=== PATIENT | female | born 1985 | race Caucasian/White ===

== ENCOUNTER → 2016-08-06 | Outpatient (CLI) | payer OTHER ==
[2016-08-06 13:55] LABS: MEAN CORPUSCULAR HEMOGLOBIN 30.1 pg (27.0-33.0); MEAN CORPUSCULAR HGB CONC 34.2 g/dl (32.0-36.5); MEAN CORPUSCULAR VOLUME 87.9 fl (80.0-96.0); RED CELL DISTRIBUTION WIDTH 12.7 % (11.5-14.5); WHITE BLOOD COUNT 8.9 K/mm3 (4.0-10.0)
[2016-08-06 14:28] LABS: ANION GAP 11 MEQ/L (8-16); BLOOD UREA NITROGEN 11 MG/DL (7-18); CALCIUM LEVEL 8.7 MG/DL (8.5-10.1); CARBON DIOXIDE LEVEL 24 MEQ/L (21-32); CHLORIDE LEVEL 108 MEQ/L (98-107); CREATININE FOR GFR 0.65 MG/DL (0.55-1.02); GLOMERULAR FILTRATION RATE > 60.0 (>60); GLUCOSE, FASTING 85 MG/DL (70-105); POTASSIUM SERUM 3.9 MEQ/L (3.5-5.1); SODIUM LEVEL 143 MEQ/L (136-145)
== END ==
LOC: M LAB 12:32
PROVIDERS: ATTEND Student in an Organized Health Care Education/Training Program
DX: R53.83 Other fatigue (principal); Z79.899 Other long term (current) drug therapy

== ENCOUNTER → 2016-09-02 | Outpatient (RCR) | payer OTHER | END | disposition home or self-care (01) | LOC: M OUTALCOH 08-05 10:35 | PROVIDERS: ATTEND Psychiatry & Neurology Psychiatry | DX: F10.20 Alcohol dependence, uncomplicated (principal) ==

== ENCOUNTER 2016-09-10 14:58 | Emergency (ER) | payer MEDICAID, OTHER ==
--- NOTE | 2016-09-10 17:20 | EDDOCDS ---
Nurse's Notes [facility] Name: Dede Branch Age: 31 yrs Sex: Female : 1985 Arrival Date: 09/10/2016 Time: 14:58 Bed TR7 Private MD: NO PRIMARY PHYSICIAN, . Diagnosis: Conjunctivitis-left eye Presentation: 09/10 15:06 Presenting complaint: Patient states: left eye red -- pt concerned with pink eye. No ttb drainage. Mechanism of Injury: No Mechanism of Injury. The patient denies any loss of vision. Adult Sepsis Screening: The patient does not have new or worsening altered mentation. Patient's respiratory rate is less than 22. Systolic blood pressure is greater than 100. Patient has a qSOFA score of 0- Negative Sepsis Screen. Suicide/Homicide risk assessment- the patient denies having any suicidal and/or homicidal ideations and does not present with any other emotional, behavioral or mental health complaints. Status: Patient is not a rn support services or dependent. Transition of care: patient was not received from another setting of care. 15:06 Acuity: DAFNE Level 5 ttb 15:06 Method Of Arrival: Walkin/Carried/Asstd ttb Triage Assessment: 15:08 General: Appears in no apparent distress, well nourished, well groomed. Pain: Denies ttb pain. HIV screening NA for this visit Offered previously. EENT: Eyes left eye red, no drainage. Respiratory: No deficits noted. Derm: Skin is normal. Injury Description: No known injury. 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 Benadryl Oral 1 cap 4 times per day (Last dose: Unknown) 2. metformin 500 mg oral tab 1 tab 2 times per day (Last dose: 09/10/2016 08:00) 3. multivitamin Oral cap daily (Last dose: 09/10/2016 07:30) 4. BCP Oral once daily (Last dose: 09/09/2016 20:00) - PMHx: Anxiety; PCOS; - PSHx: Cesearean Section; - Social history: Smoking status: Patient states was never smoker of tobacco. Patient/guardian denies using alcohol, street drugs, No barriers to communication noted, The patient speaks fluent Thai, Speaks appropriately for age. - Family history: Not pertinent. - : The pt / caregiver states he / she is not on anticoagulants. Home medication list is obtained from the patient. - Exposure Risk Screening:: None identified. Screenin:19 Screening information is obtained from the patient. Fall risk: No risks identified. hs1 Assistance ADL's: requires no assistance with activities of daily living. Abuse/DV Screen: The patient / caregiver reports he/she is: not in a situation that causes fear, pain or injury. Nutritional screening: No deficits noted. Advance Directives: There is no active DNR order. home support is adequate. Assessment: 17:19 General: Appears in no apparent distress, comfortable. EENT: Sclera/Cornea are reddened hs1 in left eye. Vital Signs: 15:00 BP 128 / 68; Pulse 91; Resp 18 S; Temp 97.1(O); Pulse Ox 98% on R/A; Weight 79.38 kg gr2 (R); Height 4 ft. 11 in. (149.86 cm) (R); Pain 2/10; 17:16 BP 122 / 67; Pulse 74; Resp 18; Temp 97.8(O); Pulse Ox 97% on R/A; Pain 0/10; ct3 15:00 Body Mass Index 35.35 (79.38 kg, 149.86 cm) gr2 Vitals: 15:00 Log In Time: September 10, 2016 at 15:00. gr2 ED Course: 14:59 Patient visited by Roxane Manning. gr2 14:59 Patient moved to Waiting gr2 15:00 NO PRIMARY PHYSICIAN, . is Private Physician. gr2 15:01 Patient visited by Roxane Manning. gr2 15:01 Patient moved to Pre RCE gr2 15:07 Triage Initiated ttb 15:09 Patient visited by Shi Bucio RN. ttb 16:51 Noah Sheehan PA-C is PHCP. ar2 16:51 Brian Koch MD is Attending Physician. ar2 16:51 Patient visited by Noah Sheehan PA-C. ar2 16:51 Patient moved to Triage 2 ct3 17:17 Patient visited by Aminta Jacques PCA. ct3 17:19 Patient moved to TR7 ct3 17:19 The patient / caregiver is instructed regarding the plan of care and ED course. hs1 17:19 No IV's were initiated during this patient's visit. No procedures done that require hs1 assistance. Order Results: There are currently no results for this order. Outcome: 17:03 Discharge ordered by Provider. ar2 17:19 Discharge Assessment: Patient awake, alert and oriented x 3. No cognitive and/or hs1 functional deficits noted. Patient verbalized understanding of disposition instructions. patient administered narcotics - no. The following High Risk Discharge criteria are identified: None. Discharged to home ambulatory. Condition: good. Discharge instructions given to patient, Instructed on discharge instructions, follow up and referral plans. medication usage, Demonstrated understanding of instructions, medications, Pt was receptive of discharge instructions/ teaching. Prescriptions given X 1. No special radiology studies were completed. Property sent home with patient. 17:20 Patient left the ED. hs1 Signatures: Noah Sheehan, KENN PABelkis ar2 Trisha Nuñez, RN RN hs1 Aminta Jacques, CHASE DIRECT SUPPORT PROFESSIONAL CAREGIVER ct3 Shi Bucio RN RN ttb Roxane Manning gr2 MTDD
--- NOTE | 2016-09-10 17:20 | EDDOCDS ---
Physician Documentation [facility] Name: Dede Branch Age: 31 yrs Sex: Female : 1985 Arrival Date: 09/10/2016 Time: 14:58 Bed TR7 Private MD: NO PRIMARY PHYSICIAN, . Disposition: 09/10/16 17:03 Discharged to Home/Self Care. Impression: Conjunctivitis - left eye. - Condition is Stable. - Discharge Instructions: Bacterial Conjunctivitis. - Prescriptions for tobramycin 0.3 % Ophthalmic drops - instill 1 drop by OPHTHALMIC route 4 times per day for 5 days; 1 bottle. - Medication Reconciliation, Local Pharmacy Hours form. - Follow up: Private Physician; When: Call to arrange an appointment; Reason: Recheck today's complaints. Follow up: Emergency Department; When: As needed; Reason: Worsening of conditions. - Problem is new. - Symptoms are unchanged. Historical: - Allergies: Peanut; - Home Meds: 1. Benadryl Oral 1 cap 4 times per day (Last dose: Unknown) 2. metformin 500 mg oral tab 1 tab 2 times per day (Last dose: 09/10/2016 08:00) 3. multivitamin Oral cap daily (Last dose: 09/10/2016 07:30) 4. BCP Oral once daily (Last dose: 09/09/2016 20:00) - PMHx: Anxiety; PCOS; - PSHx: Cesearean Section; - Social history: Smoking status: Patient states was never smoker of tobacco. Patient/guardian denies using alcohol, street drugs, No barriers to communication noted, The patient speaks fluent Spanish, Speaks appropriately for age. - Family history: Not pertinent. - : The pt / caregiver states he / she is not on anticoagulants. Home medication list is obtained from the patient. - Exposure Risk Screening:: None identified. 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 11 in. (149.86 cm) (R); Pain 2/10; 17:16 BP 122 / 67; Pulse 74; Resp 18; Temp 97.8(O); Pulse Ox 97% on R/A; Pain 0/10; ct3 15:00 Body Mass Index 35.35 (79.38 kg, 149.86 cm) gr2 Signatures: Noah Sheehan PA-C PABelkis ar2 Trisha Nuñez RN RN hs1 Shi Bucio RN RN ttb MTDD
--- NOTE | 2016-09-12 18:20 | EDDOCDS ---
Nurse's Notes [facility] Name: Dede Branch Age: 31 yrs Sex: Female : 1985 Arrival Date: 09/10/2016 Time: 14:58 Bed TR7 Private MD: NO PRIMARY PHYSICIAN, . Diagnosis: Conjunctivitis-left eye Presentation: 09/10 15:06 Presenting complaint: Patient states: left eye red -- pt concerned with pink eye. No ttb drainage. Mechanism of Injury: No Mechanism of Injury. The patient denies any loss of vision. Adult Sepsis Screening: The patient does not have new or worsening altered mentation. Patient's respiratory rate is less than 22. Systolic blood pressure is greater than 100. Patient has a qSOFA score of 0- Negative Sepsis Screen. Suicide/Homicide risk assessment- the patient denies having any suicidal and/or homicidal ideations and does not present with any other emotional, behavioral or mental health complaints. Status: Patient is not a ramp service employee or dependent. Transition of care: patient was not received from another setting of care. 15:06 Acuity: DAFNE Level 5 ttb 15:06 Method Of Arrival: Walkin/Carried/Asstd ttb Triage Assessment: 15:08 General: Appears in no apparent distress, well nourished, well groomed. Pain: Denies ttb pain. HIV screening NA for this visit Offered previously. EENT: Eyes left eye red, no drainage. Respiratory: No deficits noted. Derm: Skin is normal. Injury Description: No known injury. 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 Benadryl Oral 1 cap 4 times per day (Last dose: Unknown) 2. metformin 500 mg oral tab 1 tab 2 times per day (Last dose: 09/10/2016 08:00) 3. multivitamin Oral cap daily (Last dose: 09/10/2016 07:30) 4. BCP Oral once daily (Last dose: 09/09/2016 20:00) - PMHx: Anxiety; PCOS; - PSHx: Cesearean Section; - Social history: Smoking status: Patient states was never smoker of tobacco. Patient/guardian denies using alcohol, street drugs, No barriers to communication noted, The patient speaks fluent Indonesian, Speaks appropriately for age. - Family history: Not pertinent. - : The pt / caregiver states he / she is not on anticoagulants. Home medication list is obtained from the patient. - Exposure Risk Screening:: None identified. Screenin:19 Screening information is obtained from the patient. Fall risk: No risks identified. hs1 Assistance ADL's: requires no assistance with activities of daily living. Abuse/DV Screen: The patient / caregiver reports he/she is: not in a situation that causes fear, pain or injury. Nutritional screening: No deficits noted. Advance Directives: There is no active DNR order. home support is adequate. Assessment: 17:19 General: Appears in no apparent distress, comfortable. EENT: Sclera/Cornea are reddened hs1 in left eye. Vital Signs: 15:00 BP 128 / 68; Pulse 91; Resp 18 S; Temp 97.1(O); Pulse Ox 98% on R/A; Weight 79.38 kg gr2 (R); Height 4 ft. 11 in. (149.86 cm) (R); Pain 2/10; 17:16 BP 122 / 67; Pulse 74; Resp 18; Temp 97.8(O); Pulse Ox 97% on R/A; Pain 0/10; ct3 15:00 Body Mass Index 35.35 (79.38 kg, 149.86 cm) gr2 Vitals: 15:00 Log In Time: September 10, 2016 at 15:00. gr2 ED Course: 14:59 Patient visited by Roxane Manning. gr2 14:59 Patient moved to Waiting gr2 15:00 NO PRIMARY PHYSICIAN, . is Private Physician. gr2 15:01 Patient visited by Roxane Manning. gr2 15:01 Patient moved to Pre RCE gr2 15:07 Triage Initiated ttb 15:09 Patient visited by Shi Bucio RN. ttb 16:51 Noah Sheehan PA-C is PHCP. ar2 16:51 Brian Koch MD is Attending Physician. ar2 16:51 Patient visited by Noah Sheehan PA-C. ar2 16:51 Patient moved to Triage 2 ct3 17:17 Patient visited by Aminta Jacques PCA. ct3 17:19 Patient moved to TR7 ct3 17:19 The patient / caregiver is instructed regarding the plan of care and ED course. hs1 17:19 No IV's were initiated during this patient's visit. No procedures done that require hs1 assistance. 17:25 [facility] Payment Agreement was scanned into [employer] and attached to record. shu 09/11 13:30 T-Sheet-- Draft Copy was scanned into [employer] and attached to record. gb Order Results: There are currently no results for this order. Outcome: 09/10 17:03 Discharge ordered by Provider. ar2 17:19 Discharge Assessment: Patient awake, alert and oriented x 3. No cognitive and/or hs1 functional deficits noted. Patient verbalized understanding of disposition instructions. patient administered narcotics - no. The following High Risk Discharge criteria are identified: None. Discharged to home ambulatory. Condition: good. Discharge instructions given to patient, Instructed on discharge instructions, follow up and referral plans. medication usage, Demonstrated understanding of instructions, medications, Pt was receptive of discharge instructions/ teaching. Prescriptions given X 1. No special radiology studies were completed. Property sent home with patient. 17:20 Patient left the ED. hs1 Signatures: Mirian Prescott, Reg Reg gb Noah Sheehan, PA-C PA-C ar2 Trisha Nuñez, RN RN hs1 Aminta Jacques, DYER AND WASHER DYER AND WASHER ct3 Shi Bucio, RN RN ttb Roxane Manning gr2 Sabrina Rolon Chart Complete MTDD
--- NOTE | 2016-09-12 18:20 | EDDOCDS ---
Physician Documentation [facility] Name: Dede Branch Age: 31 yrs Sex: Female : 1985 Arrival Date: 09/10/2016 Time: 14:58 Bed TR7 Private MD: NO PRIMARY PHYSICIAN, . Disposition: 09/10/16 17:03 Discharged to Home/Self Care. Impression: Conjunctivitis - left eye. - Condition is Stable. - Discharge Instructions: Bacterial Conjunctivitis. - Prescriptions for tobramycin 0.3 % Ophthalmic drops - instill 1 drop by OPHTHALMIC route 4 times per day for 5 days; 1 bottle. - Medication Reconciliation, Local Pharmacy Hours form. - Follow up: Private Physician; When: Call to arrange an appointment; Reason: Recheck today's complaints. Follow up: Emergency Department; When: As needed; Reason: Worsening of conditions. - Problem is new. - Symptoms are unchanged. Historical: - Allergies: Peanut; - Home Meds: 1. Benadryl Oral 1 cap 4 times per day (Last dose: Unknown) 2. metformin 500 mg oral tab 1 tab 2 times per day (Last dose: 09/10/2016 08:00) 3. multivitamin Oral cap daily (Last dose: 09/10/2016 07:30) 4. BCP Oral once daily (Last dose: 09/09/2016 20:00) - PMHx: Anxiety; PCOS; - PSHx: Cesearean Section; - Social history: Smoking status: Patient states was never smoker of tobacco. Patient/guardian denies using alcohol, street drugs, No barriers to communication noted, The patient speaks fluent Scottish, Speaks appropriately for age. - Family history: Not pertinent. - : The pt / caregiver states he / she is not on anticoagulants. Home medication list is obtained from the patient. - Exposure Risk Screening:: None identified. 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 11 in. (149.86 cm) (R); Pain 2/10; 17:16 BP 122 / 67; Pulse 74; Resp 18; Temp 97.8(O); Pulse Ox 97% on R/A; Pain 0/10; ct3 15:00 Body Mass Index 35.35 (79.38 kg, 149.86 cm) gr2 MDM: 17:25 [facility] Payment Agreement was scanned into [employer] and attached to record. gjb 17:25 Financial registration complete. gjb 09/11 13:30 T-Sheet-- Draft Copy was scanned into [employer] and attached to record. gb Signatures: Mirian Prescott, Reg Reg gb Noah Sheehan PA-C PA-C ar2 Trisha Nuñez RN RN hs1 Shi Bucio RN RN pavelb Sabrina Rolon The chart was reviewed and I authenticate all verbal orders and agree with the evaluation and treatment provided.Attachments: 09/10 17:25 [facility] Payment Agreement gjb 09/11 13:30 T-Sheet-- Draft Copy gb Chart Complete MTDD
--- NOTE | 2016-09-12 18:20 | EDDOCDS ---
Physician Documentation [facility] Name: Dede Branch Age: 31 yrs Sex: Female : 1985 Arrival Date: 09/10/2016 Time: 14:58 Bed TR7 Private MD: NO PRIMARY PHYSICIAN, . Disposition: 09/10/16 17:03 Discharged to Home/Self Care. Impression: Conjunctivitis - left eye. - Condition is Stable. - Discharge Instructions: Bacterial Conjunctivitis. - Prescriptions for tobramycin 0.3 % Ophthalmic drops - instill 1 drop by OPHTHALMIC route 4 times per day for 5 days; 1 bottle. - Medication Reconciliation, Local Pharmacy Hours form. - Follow up: Private Physician; When: Call to arrange an appointment; Reason: Recheck today's complaints. Follow up: Emergency Department; When: As needed; Reason: Worsening of conditions. - Problem is new. - Symptoms are unchanged. Historical: - Allergies: Peanut; - Home Meds: 1. Benadryl Oral 1 cap 4 times per day (Last dose: Unknown) 2. metformin 500 mg oral tab 1 tab 2 times per day (Last dose: 09/10/2016 08:00) 3. multivitamin Oral cap daily (Last dose: 09/10/2016 07:30) 4. BCP Oral once daily (Last dose: 09/09/2016 20:00) - PMHx: Anxiety; PCOS; - PSHx: Cesearean Section; - Social history: Smoking status: Patient states was never smoker of tobacco. Patient/guardian denies using alcohol, street drugs, No barriers to communication noted, The patient speaks fluent Beninese, Speaks appropriately for age. - Family history: Not pertinent. - : The pt / caregiver states he / she is not on anticoagulants. Home medication list is obtained from the patient. - Exposure Risk Screening:: None identified. 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 11 in. (149.86 cm) (R); Pain 2/10; 17:16 BP 122 / 67; Pulse 74; Resp 18; Temp 97.8(O); Pulse Ox 97% on R/A; Pain 0/10; ct3 15:00 Body Mass Index 35.35 (79.38 kg, 149.86 cm) gr2 MDM: 17:25 [facility] Payment Agreement was scanned into [employer] and attached to record. gjb 17:25 Financial registration complete. gjb 09/11 13:30 T-Sheet-- Draft Copy was scanned into [employer] and attached to record. gb Signatures: Mirian Prescott, Reg Reg gb Noah Sheehan PA-C PA-C ar2 Trisha Nuñez RN RN hs1 Shi Bucio RN RN pavelb Sabrina Rolon The chart was reviewed and I authenticate all verbal orders and agree with the evaluation and treatment provided.Attachments: 09/10 17:25 [facility] Payment Agreement gjb 09/11 13:30 T-Sheet-- Draft Copy gb Chart Complete MTDD
== END 2016-09-10 17:20 | disposition home or self-care (01) ==
LOC: M ED 14:58
DX: H10.32 Unspecified acute conjunctivitis, left eye (principal); F41.9 Anxiety disorder, unspecified; E28.2 Polycystic ovarian syndrome; Z79.84 Long term (current) use of oral hypoglycemic drugs; Z91.010 Allergy to peanuts

== ENCOUNTER 2016-09-29 14:00 | Outpatient (RCR) | payer MEDICAID | END 2016-09-30 | LOC: M OUTALCOH 14:00 | PROVIDERS: ATTEND Psychiatry & Neurology Psychiatry | DX: F10.20 Alcohol dependence, uncomplicated (principal) ==

== ENCOUNTER 2016-10-29 14:00 | Outpatient (RCR) | payer MEDICAID | END 2016-10-31 | LOC: M OUTALCOH 14:00 | PROVIDERS: ATTEND Psychiatry & Neurology Psychiatry | DX: F10.20 Alcohol dependence, uncomplicated (principal) ==

== ENCOUNTER 2016-11-26 13:00 | Outpatient (RCR) | payer MEDICAID | END 2016-11-30 | LOC: M OUTALCOH 13:00 | PROVIDERS: ATTEND Psychiatry & Neurology Psychiatry | DX: F10.20 Alcohol dependence, uncomplicated (principal) ==

== ENCOUNTER → 2016-11-28 | Outpatient (CLI) | payer OTHER ==
[2016-11-28 19:09] LABS: MEAN CORPUSCULAR HEMOGLOBIN 29.7 pg (27.0-33.0); MEAN CORPUSCULAR HGB CONC 32.8 g/dl (32.0-36.5); MEAN CORPUSCULAR VOLUME 90.5 fl (80.0-96.0); RED CELL DISTRIBUTION WIDTH 13.9 % (11.5-14.5)
== END ==
LOC: M LAB 15:50
PROVIDERS: ATTEND Student in an Organized Health Care Education/Training Program
DX: D64.9 Anemia, unspecified (principal); L83 Acanthosis nigricans

== ENCOUNTER → 2016-12-02 | Outpatient (CLI) | payer OTHER ==
--- NOTE | 2016-12-03 03:52 | REP ---
Clinical: Pelvic pain and cramping . Technique: Transabdominal pelvic ultrasound followed by transvaginal examination for better evaluation of the endometrium and adnexa with color Doppler evaluation of the ovaries. Findings: Bladder is unremarkable and measures 6.9 x 2.9 x 4.3 cm . Normal anteverted uterus measures 8.2 x 3.6 x 5.7 cm . The endometrial complex measures 3.0 mm thickness. No discrete uterine or endometrial abnormalities are appreciated. Bilateral ovaries are normal in appearance and vascularity without evidence for torsion. Right ovary measures 3.2 x 1.8 x 2.5 cm ; R I = 0.62 . Left ovary measures 3.6 x 2.6 x 3.2 cm ; R I = 0.52 . No pelvic fluid or adnexal mass lesions. . Impression: 1. Normal pelvic ultrasound. Signed by Km Cheng MD 12/03/2016 03:43 A
== END ==
LOC: M RAD 11:18
PROVIDERS: ATTEND Student in an Organized Health Care Education/Training Program
DX: R10.9 Unspecified abdominal pain (principal)

== ENCOUNTER → 2016-12-10 | Outpatient (CLI) | payer OTHER ==
[2016-12-10 13:39] LABS: BASO # 0.1 K/mm3 (0.0-0.2); BASO % 0.5 % (0.0-1.0); EOS # 0.2 K/mm3 (0.0-0.50); EOS % 1.7 % (0.0-3.0); LARGE UNSTAINED CELL # 0.3 K/mm3 (0.0-0.4); LARGE UNSTAINED CELL % 2.4 % (0.0-4.0); LYMPH # 3.4 K/mm3 (1.5-4.5); LYMPH % 25.3 % (24.0-44.0); MEAN CORPUSCULAR HEMOGLOBIN 30.9 pg (27.0-33.0); MEAN CORPUSCULAR HGB CONC 34.3 g/dl (32.0-36.5); MEAN CORPUSCULAR VOLUME 90.1 fl (80.0-96.0); MONO # 0.4 K/mm3 (0.0-0.8); MONO % 3.3 % (0.0-5.0); NEUTROPHILS # 8.2 K/mm3 (1.8-7.7); NEUTROPHILS % 66.9 % (36.0-66.0); PLATELET COUNT, AUTOMATED 243 k/mm3 (150-450); RED CELL DISTRIBUTION WIDTH 13.5 % (11.5-14.5); WHITE BLOOD COUNT 12.2 K/mm3 (4.0-10.0)
== END ==
LOC: M LAB 12:45
PROVIDERS: ATTEND Student in an Organized Health Care Education/Training Program
DX: D72.829 Elevated white blood cell count, unspecified (principal)

== ENCOUNTER 2016-12-24 14:00 | Outpatient (RCR) | payer MEDICAID | END 2016-12-31 | LOC: M OUTALCOH 14:00 | PROVIDERS: ATTEND Psychiatry & Neurology Psychiatry | DX: F10.20 Alcohol dependence, uncomplicated (principal) ==

== ENCOUNTER → 2016-12-25 | Outpatient (CLI) | payer MEDICAID ==
[2016-12-25 14:48] LABS: BASO # 0.1 K/mm3 (0.0-0.2); BASO % 0.5 % (0.0-1.0); EOS # 0.3 K/mm3 (0.0-0.50); EOS % 2.4 % (0.0-3.0); LARGE UNSTAINED CELL # 0.2 K/mm3 (0.0-0.4); LARGE UNSTAINED CELL % 1.9 % (0.0-4.0); LYMPH # 3.5 K/mm3 (1.5-4.5); LYMPH % 27.4 % (24.0-44.0); MEAN CORPUSCULAR HEMOGLOBIN 30.7 pg (27.0-33.0); MEAN CORPUSCULAR HGB CONC 33.9 g/dl (32.0-36.5); MEAN CORPUSCULAR VOLUME 90.4 fl (80.0-96.0); MONO # 0.5 K/mm3 (0.0-0.8); MONO % 3.8 % (0.0-5.0); NEUTROPHILS # 7.6 K/mm3 (1.8-7.7); PLATELET COUNT, AUTOMATED 236 k/mm3 (150-450); RED CELL DISTRIBUTION WIDTH 13.6 % (11.5-14.5); WHITE BLOOD COUNT 11.9 K/mm3 (4.0-10.0)
== END ==
LOC: M LAB 13:50
PROVIDERS: ATTEND Student in an Organized Health Care Education/Training Program
DX: D72.820 Lymphocytosis (symptomatic) (principal)

== ENCOUNTER → 2017-01-23 | Outpatient (REF) | payer OTHER | LOC: M SFHCPLAZ 11:37 | PROVIDERS: ATTEND Family Medicine | DX: Z12.4 Encounter for screening for malignant neoplasm of cervix (principal); Z11.3 Encounter for screening for infections with a predominantly sexual mode of transmission ==

== ENCOUNTER 2017-01-26 11:00 | Outpatient (RCR) | payer MEDICAID ==
[2017-06-05] MEDS ORDERED: PREVTAB2 (10:45)
[2017-06-05] MEDS ORDERED: CITA20TA4 (10:45)
[2017-06-05] MEDS ORDERED: VALA1TAB2 (10:45)
[2017-06-05] MEDS ORDERED: CELE10TA (10:45)
[2017-06-05] MEDS ORDERED: CELE20TA (10:45)
[2017-06-05] MEDS ORDERED: METF500T13 (10:45)
[2017-06-05] MEDS ORDERED: GABA-282 (10:45)
== END 2017-01-30 | disposition home or self-care (01) ==
LOC: M OUTALCOH 11:00
PROVIDERS: ATTEND Psychiatry & Neurology Psychiatry
DX: F10.20 Alcohol dependence, uncomplicated (principal)

== ENCOUNTER → 2017-01-27 | Outpatient (CLI) | payer OTHER | LOC: M LAB 15:33 | PROVIDERS: ATTEND Family Medicine | DX: Z11.3 Encounter for screening for infections with a predominantly sexual mode of transmission (principal); Z11.4 Encounter for screening for human immunodeficiency virus [HIV] ==

== ENCOUNTER 2017-02-25 16:00 | Outpatient (RCR) | payer MEDICAID ==
[2017-06-05] MEDS ORDERED: CITA20TA4 (10:45)
[2017-06-05] MEDS ORDERED: CELE20TA (10:45)
[2017-06-05] MEDS ORDERED: VALA1TAB2 (10:45)
[2017-06-05] MEDS ORDERED: GABA-282 (10:45)
[2017-06-05] MEDS ORDERED: CELE10TA (10:45)
[2017-06-05] MEDS ORDERED: METF500T13 (10:45)
[2017-06-05] MEDS ORDERED: PREVTAB2 (10:45)
== END 2017-03-02 ==
LOC: M OUTALCOH 16:00
PROVIDERS: ATTEND Psychiatry & Neurology Psychiatry
DX: F10.20 Alcohol dependence, uncomplicated (principal)

== ENCOUNTER 2017-04-01 08:45 | Outpatient (RCR) | payer MEDICAID ==
[2017-06-05] MEDS ORDERED: CITA20TA4 (10:45)
[2017-06-05] MEDS ORDERED: GABA-282 (10:45)
[2017-06-05] MEDS ORDERED: VALA1TAB2 (10:45)
[2017-06-05] MEDS ORDERED: METF500T13 (10:45)
[2017-06-05] MEDS ORDERED: CELE10TA (10:45)
[2017-06-05] MEDS ORDERED: CELE20TA (10:45)
[2017-06-05] MEDS ORDERED: PREVTAB2 (10:45)
== END 2017-04-02 ==
LOC: M OUTALCOH 08:45
PROVIDERS: ATTEND Psychiatry & Neurology Psychiatry
DX: F10.20 Alcohol dependence, uncomplicated (principal)

== ENCOUNTER → 2017-04-10 | Outpatient (REF) | payer MEDICAID, OTHER ==
[~2017-04-10] MED LIST: CELE10TA; CELE20TA; CITA20TA4; GABA-282; METF500T13; PREVTAB2; VALA1TAB2
[2017-04-10 17:32] LABS: CONTROL LINE HCG INT CTR LINE PRESENT
== END ==
LOC: M LABDRAW1 16:46
PROVIDERS: ATTEND Hospitalist
DX: R53.83 Other fatigue (principal)

== ENCOUNTER → 2017-04-16 | Outpatient (REF) | payer OTHER ==
[2017-04-16 16:05] LABS: ANION GAP 12 MEQ/L (8-16); BLOOD UREA NITROGEN 10 MG/DL (7-18); CALCIUM LEVEL 9.3 MG/DL (8.5-10.1); CARBON DIOXIDE LEVEL 27 MEQ/L (21-32); CHLORIDE LEVEL 104 MEQ/L (98-107); CREATININE FOR GFR 0.76 MG/DL (0.55-1.02); GLOMERULAR FILTRATION RATE > 60.0 (>60); GLUCOSE, FASTING 88 MG/DL (70-105); POTASSIUM SERUM 4.1 MEQ/L (3.5-5.1); SODIUM LEVEL 143 MEQ/L (136-145)
== END ==
LOC: M SFHCPLAZ 13:36
PROVIDERS: ATTEND Hospitalist
DX: R53.82 Chronic fatigue, unspecified (principal)

== ENCOUNTER 2017-04-28 11:00 | Outpatient (RCR) | payer MEDICAID ==
[2017-06-05] MEDS ORDERED: VALA1TAB2 (10:45)
[2017-06-05] MEDS ORDERED: PREVTAB2 (10:45)
[2017-06-05] MEDS ORDERED: CELE20TA (10:45)
[2017-06-05] MEDS ORDERED: GABA-282 (10:45)
[2017-06-05] MEDS ORDERED: CITA20TA4 (10:45)
[2017-06-05] MEDS ORDERED: METF500T13 (10:45)
[2017-06-05] MEDS ORDERED: CELE10TA (10:45)
== END 2017-05-02 ==
LOC: M OUTALCOH 11:00
PROVIDERS: ATTEND Psychiatry & Neurology Psychiatry
DX: F10.20 Alcohol dependence, uncomplicated (principal)

== ENCOUNTER → 2017-05-01 | Outpatient (REF) | payer MEDICAID | LOC: M LAB REF 11:41 | PROVIDERS: ATTEND Physician Assistant | DX: Z20.2 Contact with and (suspected) exposure to infections with a predominantly sexual mode of transmission (principal) ==

== ENCOUNTER 2017-06-19 15:00 | Outpatient (RCR) | payer MEDICAID | END 2017-07-02 | LOC: M OUTALCOH 15:00 | PROVIDERS: ATTEND Psychiatry & Neurology Psychiatry | DX: F10.20 Alcohol dependence, uncomplicated (principal) ==

== ENCOUNTER → 2017-10-28 | Outpatient (CLI) | payer MEDICAID | LOC: M OUTALCOH 08:09 | DX: Z13.9 Encounter for screening, unspecified (principal); F10.20 Alcohol dependence, uncomplicated ==

== ENCOUNTER 2017-11-12 15:10 | Outpatient (RCR) | payer MEDICAID | END 2017-11-30 | LOC: M OUTALCOH 15:10 | DX: F10.20 Alcohol dependence, uncomplicated (principal) ==

== ENCOUNTER 2017-12-01 10:25 | Outpatient (RCR) | payer MEDICAID | END 2017-12-31 | LOC: M OUTALCOH 12-02 09:00 | DX: F10.20 Alcohol dependence, uncomplicated (principal) ==

== ENCOUNTER 2018-01-01 13:16 | Outpatient (RCR) | payer MEDICAID | END 2018-01-30 | LOC: M OUTALCOH 13:16 | DX: F10.20 Alcohol dependence, uncomplicated (principal) ==

== ENCOUNTER → 2018-05-13 | Outpatient (CLI) | payer MEDICAID | LOC: M OUTALCOH 08:17 | DX: Z13.89 Encounter for screening for other disorder (principal); F10.20 Alcohol dependence, uncomplicated ==

== ENCOUNTER → 2018-05-18 | Outpatient (REF) | payer OTHER ==
[2018-05-18 17:28] LABS: APPEARANCE, URINE HAZY (CLEAR); BACTERIA, URINE AUTO NEGATIVE (NEGATIVE); BILIRUBIN, URINE AUTO NEGATIVE (NEGATIVE); BLOOD, URINE BLOOD NEGATIVE (NEGATIVE); COLOR, URINE YELLOW (YELLOW); GLUCOSE, URINE (UA) AUTO NEGATIVE (NEGATIVE); KETONE, URINE AUTO NEGATIVE (NEGATIVE); LEUKOCYTE ESTERASE, URINE AUTO NEGATIVE (NEGATIVE); MUCUS, URINE SMALL (NEGATIVE); NITRITE, URINE AUTO NEGATIVE (NEGATIVE); PROTEIN, URINE AUTO NEGATIVE (NEGATIVE); RBC, URINE AUTO 1 /HPF (0-3); SPECIFIC GRAVITY URINE AUTO 1.019 (1.002-1.035); SQUAMOUS EPITHELIAL CELL UR AU 1 /HPF (0-6); UROBILINOGEN, URINE AUTO 0.2 mg/dL (0.0-2.0); WBC, URINE AUTO 1 /HPF (0-3)
== END ==
LOC: M LAB REF 16:34
DX: N39.0 Urinary tract infection, site not specified (principal)
CPT/HCPCS: 81001

== ENCOUNTER 2018-05-19 13:49 | Outpatient (RCR) | payer MEDICAID | END 2018-06-02 | LOC: M OUTALCOH 05-27 09:00 | DX: F10.20 Alcohol dependence, uncomplicated (principal) ==

== ENCOUNTER 2018-06-03 11:35 | Outpatient (RCR) | payer MEDICAID | END 2018-07-02 | LOC: M OUTALCOH 06-07 14:00 | DX: F10.20 Alcohol dependence, uncomplicated (principal) ==

== ENCOUNTER → 2018-07-23 | Outpatient (REF) | payer MEDICAID ==
[~2018-07-23] MED LIST changes: -GABA-282; +GABA-843
[2018-07-23 13:36] LABS: AMORPHOUS SEDIMENT SMALL (NEGATIVE); BACTERIA, URINE AUTO NEGATIVE (NEGATIVE); BILIRUBIN, URINE AUTO NEGATIVE (NEGATIVE); BLOOD, URINE BLOOD 3+ (NEGATIVE); GLUCOSE, URINE (UA) AUTO NEGATIVE (NEGATIVE); KETONE, URINE AUTO NEGATIVE (NEGATIVE); LEUKOCYTE ESTERASE, URINE AUTO 1+ (NEGATIVE); NITRITE, URINE AUTO NEGATIVE (NEGATIVE); PROTEIN, URINE AUTO NEGATIVE (NEGATIVE); RBC, URINE AUTO TNTC /HPF (0-3); SPECIFIC GRAVITY URINE AUTO 1.011 (1.002-1.035); SQUAMOUS EPITHELIAL CELL UR AU 2 /HPF (0-6); UROBILINOGEN, URINE AUTO 0.2 mg/dL (0.0-2.0); WBC, URINE AUTO 18 /HPF (0-3)
[2018-07-23 15:13] LABS: CHLAMYDIA DNA AMPLIFICATION NEGATIVE (NEGATIVE); GC DNA AMPLIFICATION POSITIVE (NEGATIVE)
== END ==
LOC: M LAB REF 13:09
PROVIDERS: ATTEND Physician Assistant
DX: N39.0 Urinary tract infection, site not specified (principal); Z11.3 Encounter for screening for infections with a predominantly sexual mode of transmission

== ENCOUNTER → 2018-08-02 | Outpatient (RCR) | payer MEDICAID | LOC: M OUTALCOH 07-05 15:17 | PROVIDERS: ATTEND Psychiatry & Neurology Psychiatry | DX: F10.20 Alcohol dependence, uncomplicated (principal) ==

== ENCOUNTER → 2018-08-12 | Outpatient (REF) | payer MEDICAID, OTHER ==
[2018-08-12 19:04] LABS: HEMOGLOBIN A1c 5.6 %
[2018-08-12 20:45] LABS: CHLAMYDIA DNA AMPLIFICATION NEGATIVE (NEGATIVE); GC DNA AMPLIFICATION NEGATIVE (NEGATIVE)
== END ==
LOC: M SFHCPLAZ 14:53
DX: E28.2 Polycystic ovarian syndrome (principal); A60.00 Herpesviral infection of urogenital system, unspecified

== ENCOUNTER 2018-08-30 16:00 | Outpatient (RCR) | payer MEDICAID | END 2018-09-02 | LOC: M OUTALCOH 16:00 | PROVIDERS: ATTEND Psychiatry & Neurology Psychiatry | DX: F10.20 Alcohol dependence, uncomplicated (principal) ==

== ENCOUNTER 2018-09-24 14:00 | Outpatient (RCR) | payer MEDICAID | END 2018-09-30 | LOC: M OUTALCOH 14:00 | PROVIDERS: ATTEND Psychiatry & Neurology Psychiatry | DX: F10.20 Alcohol dependence, uncomplicated (principal) ==

== ENCOUNTER 2018-10-27 15:21 | Outpatient (RCR) | payer MEDICAID | END 2018-10-31 | LOC: M OUTALCOH 15:21 | PROVIDERS: ATTEND Psychiatry & Neurology Psychiatry | DX: F10.20 Alcohol dependence, uncomplicated (principal) ==

== ENCOUNTER → 2018-11-01 | Outpatient (REF) | payer OTHER ==
[2018-11-01 16:17] LABS: HCG, SERUM QUALITATIVE POSITIVE (NEGATIVE)
== END ==
LOC: M LAB REF 15:06
PROVIDERS: ATTEND Physician Assistant
DX: N91.2 Amenorrhea, unspecified (principal)

== ENCOUNTER 2018-11-08 11:18 | Emergency (ER) | payer OTHER ==
[~2018-11-08] VITALS: Ht 149.9 cm; Wt 90.5 kg
[~2018-11-08 11:18] MED LIST changes: -CITA20TA4; +CITA20TA6
[2018-11-08] MEDS ORDERED: VIVI380I (11:32)
[2018-11-08] MEDS ORDERED: SERT-155 (11:32)
[2018-11-08] MEDS ORDERED: PROP10TA56 (11:32)
[2018-11-08] MEDS ORDERED: CLON0.2T (11:32)
[2018-11-08] MEDS ORDERED: SERT-138 (11:32)
[2018-11-08 12:10] LABS: BASO # 0.1 10^3/uL (0.0-0.2); BASO % 0.5 % (0.0-1.0); EOS # 0.4 10^3/uL (0.0-0.50); EOS % 3.3 % (0.0-3.0); HEMATOCRIT 41.5 % (36.0-47.0); HEMOGLOBIN 14.1 g/dl (12.0-15.5); LYMPH # 2.8 10^3/uL (1.5-4.5); MEAN CORPUSCULAR HEMOGLOBIN 31.1 pg (27.0-33.0); MEAN CORPUSCULAR VOLUME 91.6 fl (80.0-96.0); MONO # 0.9 10^3/uL (0.0-0.8); MONO % 6.9 % (0.0-5.0); NEUTROPHILS # 8.5 10^3/uL (1.8-7.7); NEUTROPHILS % 66.6 % (36.0-66.0); PLATELET COUNT, AUTOMATED 206 10^3/uL (150-450); RED BLOOD COUNT 4.53 10^6/uL (4.00-5.40); WHITE BLOOD COUNT 12.8 10^3/uL (4.0-10.0)
[2018-11-08 12:37] LABS: BLOOD UREA NITROGEN 10 MG/DL (7-18); CALCIUM LEVEL 9.4 MG/DL (8.5-10.1); CARBON DIOXIDE LEVEL 24 MEQ/L (21-32); CHLORIDE LEVEL 107 MEQ/L (98-107); CREATININE FOR GFR 0.73 MG/DL (0.55-1.30); GLOMERULAR FILTRATION RATE > 60.0 (>60); GLUCOSE, FASTING 127 MG/DL (70-100); HCG, SERUM QUANTITATIVE 736 MIU/ML; POTASSIUM SERUM 3.9 MEQ/L (3.5-5.1); SODIUM LEVEL 136 MEQ/L (136-145)
--- NOTE | 2018-11-08 13:04 | REP ---
First trimester, stat ultrasound for cramping: The study is performed with transabdominal, endovaginal and Doppler ultrasound assessment: There is a tiny intrauterine gestational sac measuring 3.7 by 2.7 x 2.8 mm. The mean sac diameter is 3.7 mm corresponding to 5 weeks 1 day gestational age. However, there is no pole or yolk sac. The finding is nonspecific and could represent early gestation, blighted ovum, missed or ectopic gestation. Follow-up is recommended. The right ovary measures 3.5 x 2.0 x 2.6 cm. The left ovary measures 3.9 x 2.6 x 2.7 cm. There is a left ovarian 2.4-0.3 x 2.3 cm hemorrhagic corpus luteum. With Doppler assessment there is vascular flow in both ovaries. The Doppler resistive index of the parenchymal arteries of the right ovary is 0.44 and left ovary 0.44. There is a trace of free fluid in the cul-de-sac. Electronically Signed by Jared Jackson MD 11/08/2018 12:56 P
[2018-11-08 13:51] VITALS: BP 133/82
== END 2018-11-08 13:50 | disposition home or self-care (01) ==
LOC: M ED 11:18
DX: O26.891 Other specified pregnancy related conditions, first trimester (principal); R10.2 Pelvic and perineal pain; Z87.891 Personal history of nicotine dependence; Z91.010 Allergy to peanuts; Z91.018 Allergy to other foods; Z79.899 Other long term (current) drug therapy; Z79.84 Long term (current) use of oral hypoglycemic drugs; Z3A.01 Less than 8 weeks gestation of pregnancy

== ENCOUNTER → 2018-11-10 | Outpatient (CLI) | payer OTHER ==
[~2018-11-10] MED LIST changes: +CLON0.2T; +PROP10TA56; +SERT-138; +SERT-155; +VIVI380I
== END ==
LOC: M LAB 09:06
PROVIDERS: ATTEND Physician Assistant
DX: Z32.00 Encounter for pregnancy test, result unknown (principal)

== ENCOUNTER → 2018-11-16 | Outpatient (CLI) | payer OTHER | LOC: M LAB 16:23 | PROVIDERS: ATTEND Advanced Practice Midwife | DX: O20.0 Threatened abortion (principal) ==

== ENCOUNTER → 2018-11-18 | Outpatient (CLI) | payer OTHER | LOC: M LAB 16:24 | PROVIDERS: ATTEND Advanced Practice Midwife | DX: O20.0 Threatened abortion (principal); Z3A.00 Weeks of gestation of pregnancy not specified ==

== ENCOUNTER → 2018-12-16 | Outpatient (CLI) | payer OTHER ==
[2018-12-16 11:59] LABS: BASO % 0.3 % (0.0-1.0); EOS # 0.2 10^3/uL (0.0-0.50); EOS % 1.6 % (0.0-3.0); HEMATOCRIT 36.8 % (36.0-47.0); HEMOGLOBIN 12.9 g/dl (12.0-15.5); LYMPH % 20.6 % (24.0-44.0); MEAN CORPUSCULAR HEMOGLOBIN 31.8 pg (27.0-33.0); MEAN CORPUSCULAR HGB CONC 35.1 g/dl (32.0-36.5); MEAN CORPUSCULAR VOLUME 90.6 fl (80.0-96.0); MONO # 0.5 10^3/uL (0.0-0.8); MONO % 5.4 % (0.0-5.0); NEUTROPHILS # 6.8 10^3/uL (1.8-7.7); NEUTROPHILS % 71.6 % (36.0-66.0); PLATELET COUNT, AUTOMATED 188 10^3/uL (150-450); RED BLOOD COUNT 4.06 10^6/uL (4.00-5.40); WHITE BLOOD COUNT 9.5 10^3/uL (4.0-10.0)
[2018-12-16 12:19] LABS: TOTAL PROTEIN,RANDOM URINE 18.3 MG/DL (0.0-12.0)
[2018-12-16 12:27] LABS: ALT/SGPT 56 U/L (12-78); BILIRUBIN,TOTAL 0.3 MG/DL (0.2-1.0); CREATININE FOR GFR 0.59 MG/DL (0.55-1.30); GLOMERULAR FILTRATION RATE > 60.0 (>60); LDH LACTATE DEHYDROGENASE 175 U/L (84-246); URIC ACID 4.1 MG/DL (2.6-6.0)
[2018-12-16 12:33] LABS: HEMOGLOBIN A1c 5.9 %
[2018-12-16 13:40] LABS: CHLAMYDIA DNA AMPLIFICATION NEGATIVE (NEGATIVE); GC DNA AMPLIFICATION NEGATIVE (NEGATIVE)
[2018-12-17 09:25] LABS: HEPATITIS B SURFACE ANTIGEN NEGATIVE (NEGATIVE); RUBELLA IgG QUALITATIVE IMMUNE (IMMUNE)
[2018-12-17 09:53] LABS: HEPATITIS C VIRUS ABY INDEX < 0.0 INDEX (<0.8)
[2018-12-17 09:54] LABS: HIV 1&2 SCREEN CENTAUR NEGATIVE (NEGATIVE)
== END ==
LOC: M LAB 09:46
PROVIDERS: ATTEND Advanced Practice Midwife
DX: Z34.81 Encounter for supervision of other normal pregnancy, first trimester (principal); Z3A.09 9 weeks gestation of pregnancy

== ENCOUNTER 2019-01-19 10:46 | Day surgery (SDC) | payer OTHER ==
[~2019-01-19] VITALS: Ht 149.9 cm; Wt 95.2 kg
[~2019-01-19 10:46] MED LIST changes: +BENA25CA4 PO; -CLON0.2T; +CLON0.2T PO; -METF500T13; +METF500T13 PO; +PREN200C PO; +SERT-141 PO; -VALA1TAB2; +VALA1TAB2 PO
[2019-01-19] MEDS ORDERED: LABE100T36 PO (11:24)
[2019-01-19 11:27] LABS: HEMATOCRIT 36.9 % (36.0-47.0); HEMOGLOBIN 12.9 g/dl (12.0-15.5); MEAN CORPUSCULAR HEMOGLOBIN 31.6 pg (27.0-33.0); MEAN CORPUSCULAR VOLUME 90.4 fl (80.0-96.0); PLATELET COUNT, AUTOMATED 157 10^3/uL (150-450); RED BLOOD COUNT 4.08 10^6/uL (4.00-5.40); WHITE BLOOD COUNT 11.4 10^3/uL (4.0-10.0)
[2019-01-19] MEDS ORDERED: LR 1,000 ML IV ONE (11:30)
[2019-01-19] MEDS ORDERED: PROPOFOL 200 MG/20 ML VIAL As Ordered ONE (13:06)
[2019-01-19] MEDS ORDERED: LIDOCAINE 2% INJ 100 MG/5 ML SDV (FOR ANES.) As Ordered ONE (13:06)
[2019-01-19] MEDS ORDERED: ONDANSETRON 4MG/2ML VIAL (J2405) As Ordered ONE (13:07)
[2019-01-19] MEDS ORDERED: MIDAZOLAM INJ 2 MG/2 ML VIAL (J2250) As Ordered ONE (13:07)
[2019-01-19] MEDS ORDERED: dexameTHASONE 4 MG/ML 1ML VIAL (J1100) As Ordered ONE (13:07)
[2019-01-19] MEDS ORDERED: fentaNYL 100 MCG/2 ML INJECTION (J3010) As Ordered ONE (13:07)
[2019-01-19] MEDS ORDERED: LIDOCAINE 1% SDV INJ 30 ML VIAL As Ordered ONE (14:00)
[2019-01-19] MEDS ORDERED: CHLOROPROCAINE 2 % INJ PRES.FREE 20 ML VIAL (J2400) As Ordered ONE (14:42)
[2019-01-19] MEDS ORDERED: LR 1,000 ML IV SCH (15:30)
[2019-01-19] MEDS ORDERED: ACETAMINOPHEN 500 MG TAB PO PRN (15:30)
[2019-01-19 16:30] VITALS: BP 139/60
--- NOTE | 2019-01-20 19:20 | RO ---
DATE OF PROCEDURE: 01/19/2019 PREPROCEDURE DIAGNOSIS: Cervical incompetence 14 weeks gestation. POSTPROCEDURE DIAGNOSIS: Cervical incompetence 14 weeks gestation. PROCEDURE: Day cervical cerclage. SURGEON: Angel Torres MD FURNACE OPERATOR: Talia Moreno MD ANESTHESIA: Spinal. ESTIMATED BLOOD LOSS: Minimal. URINE OUTPUT: 50 mL. FINDINGS: Grossly normal cervix, 14-week fetus with normal heart rate documented by preoperative ultrasound. DESCRIPTION OF PROCEDURE: The patient was taken to the operating room where spinal anesthesia was induced. She was prepped and draped in a sterile fashion in the dorsal lithotomy position. A weighted speculum was placed in the vagina. A right-angle retractor was used anteriorly. The anterior lip of the cervix was grasped with a Ring forcep. #0 Ethibond suture was placed near the junction of the internal os at the 12 o'clock position, exited at approximately the 9 o'clock position. This was repeated in a pursestring fashion in a counterclockwise direction around the cervix, exiting at the 12 o'clock position adjacent to the initial stitch. This was tied into place with mild tension only. The sutures were cut and left long for identification purposes. All instruments were removed. Sponge and needle counts were correct. In the recovery room, ultrasound was again performed, which documented normal heart rate.
== END 2019-01-19 16:33 | disposition home or self-care (01) ==
LOC: M SDC 10:46
PROVIDERS: ATTEND Specialist
DX: O34.31 Maternal care for cervical incompetence, first trimester (principal); Z3A.14 14 weeks gestation of pregnancy
CPT/HCPCS: 36415; 59320; 85027; J2250; J2400; J2405; J3010

== ENCOUNTER → 2019-02-18 | Outpatient (CLI) | payer MEDICAID, OTHER ==
[~2019-02-18] MED LIST changes: +LABE100T36 PO
--- NOTE | 2019-02-18 15:39 | REP ---
OB ULTRASOUND: Real-time sonographic evaluation of the gravid uterus is performed. There is a single living intrauterine gestation, estimated gestational age 18 weeks 6 days based on LMP, EDC 07/16/2019. Today's measurements indicate appropriate growth. BPD 45 mm = 19 weeks 4 days, 66th percentile HC 167 mm = 19 weeks 2 days, 63rd percentile AC 134 mm = 18 weeks 6 days, 49th percentile FL 32 mm = 20 weeks 0 days, 77th percentile HC/AC ratio 1.24, within normal range. Estimated weight 290 grams, 65th percentile . Cervix closed and measures 4.6 cm in length. heart rate 139 beats per minute. SEEN/GROSSLY UNREMARKABLE Lateral ventricles yes Posterior fossa yes Upper lip no Four-chamber heart no LVOT no RVOT no Stomach yes Cord insertion yes Three vessel cord yes Kidneys yes Bladder yes Spine yes position: Breech Placenta: Anterior and grade 0 with no previa or abruption. Amniotic fluid: Within normal limits. Electronically Signed by Jared Miller MD 02/20/2019 07:29 P
== END ==
LOC: M RAD 12:44
PROVIDERS: ATTEND Specialist
DX: O10.012 Pre-existing essential hypertension complicating pregnancy, second trimester (principal); Z3A.18 18 weeks gestation of pregnancy

== ENCOUNTER → 2019-03-09 | Outpatient (CLI) | payer OTHER ==
[~2019-03-09] MED LIST changes: +DIFL150T PO; +FAMO1TAB11 PO; +FLAG500T PO; +OXYC1TAB23 PO; +PREN29TA4 PO; -SERT-155; +SERT50TA29; -VALA1TAB2 PO; +VALA1TAB64 PO
--- NOTE | 2019-03-09 09:21 | REP ---
Clinical: Anatomical evaluation. Comparison: 02/18/2019 . Findings: Examination demonstrates a single live intrauterine in breech presentation. motion is identified by technologist. Placenta is noted anterior and grade air zero without evidence for placenta previa or abruption. Amniotic fluid volume is normal. Cervix measures 3.8 cm in length and appears closed. No evidence for nuchal cord. Gestational age by LMP 21 weeks 4-day with OLEG 07/16/2019 . Gestational age by current measurements 21 weeks 6 days with OLEG 07/14/2019 . FHR equals 139 beats per minute. Estimated weight 542 grams ( 90th percentile). Anatomical assessment demonstrates normal structures including cranium, choroid plexus, cavum, cerebellum/posterior fossa, lungs, four-chamber heart, diaphragm, stomach, cord insertion/three-vessel cord, kidneys/bladder, spine, and extremities. Continued limited evaluation of the facial features and cardiac ventricular outflow tracts. Impression: Single live intrauterine in breech presentation demonstrating appropriate interval growth. Anatomical limitations as noted above. Electronically Signed by Km Cheng MD 03/09/2019 09:13 A
== END ==
LOC: M RAD 06:39
PROVIDERS: ATTEND Obstetrics & Gynecology
DX: O34.32 Maternal care for cervical incompetence, second trimester (principal); Z3A.21 21 weeks gestation of pregnancy

== ENCOUNTER → 2019-03-30 | Outpatient (CLI) | payer OTHER ==
[~2019-03-30] MED LIST changes: -FAMO1TAB11 PO; -OXYC1TAB23 PO; -PREN29TA4 PO; +SERT-155; -SERT50TA29; +VALA1TAB2 PO; -VALA1TAB64 PO
--- NOTE | 2019-03-31 09:11 | REP ---
Clinical: Anatomical evaluation. Comparison: 03/09/2019 Findings: Examination demonstrates a single live intrauterine in cephalic presentation. motion is identified by technologist. Placenta is noted anterior and grade one without evidence for placenta previa or abruption. Amniotic fluid volume is normal. Cervix measures 3.9 cm in length and appears closed. No evidence for nuchal cord. Gestational age by LMP 24 weeks 4 days with OLEG 07/16/2019 . Gestational age by current measurements 24 weeks 4 days with OLEG 07/16/2019 . FHR equals 136 beats per minute. Estimated weight 704 grams ( 41st percentile). Anatomical assessment demonstrates normal structures including cranium, facial features, lungs, four-chamber heart/ventricular outflow tracts, diaphragm, stomach, cord insertion/three-vessel cord, kidneys/bladder, and extremities. Impression: Single live intrauterine in cephalic presentation demonstrating appropriate interval growth. In conjunction with prior examination anatomical assessment is complete and normal. No gross abnormalities are identified. Electronically Signed by Km Cheng MD 03/31/2019 09:02 A
== END ==
LOC: M RAD 15:21
PROVIDERS: ATTEND Obstetrics & Gynecology
DX: O10.012 Pre-existing essential hypertension complicating pregnancy, second trimester (principal)

== ENCOUNTER 2019-04-05 10:51 | Outpatient (CLI) | payer OTHER ==
[~2019-04-05] VITALS: Ht 149.9 cm; Wt 95.3 kg
[~2019-04-05 10:51] MED LIST changes: -DIFL150T PO; -FLAG500T PO; -SERT-155; +SERT50TA29; -VALA1TAB2 PO; +VALA1TAB64 PO
[2019-04-05 11:10] VITALS: BP 150/84
[2019-04-05] MEDS ORDERED: BENA25CA4 PO (11:17)
[2019-04-05 12:02] VITALS: BP 119/57
[2019-04-05 12:12] LABS: AMORPHOUS SEDIMENT SMALL (NEGATIVE); APPEARANCE, URINE CLOUDY (CLEAR); BACTERIA, URINE AUTO 1+ (NEGATIVE); BILIRUBIN, URINE AUTO NEGATIVE (NEGATIVE); BLOOD, URINE BLOOD 1+ (NEGATIVE); COLOR, URINE YELLOW (YELLOW); GLUCOSE, URINE (UA) AUTO NEGATIVE (NEGATIVE); KETONE, URINE AUTO NEGATIVE (NEGATIVE); LEUKOCYTE ESTERASE, URINE AUTO 3+ (NEGATIVE); NITRITE, URINE AUTO NEGATIVE (NEGATIVE); PROTEIN, URINE AUTO NEGATIVE (NEGATIVE); RBC, URINE AUTO 3 /HPF (0-3); SPECIFIC GRAVITY URINE AUTO 1.004 (1.002-1.035); SQUAMOUS EPITHELIAL CELL UR AU 10 /HPF (0-6); UROBILINOGEN, URINE AUTO 0.2 mg/dL (0.0-2.0); WBC, URINE AUTO 68 /HPF (0-3)
[2019-04-05 12:35] VITALS: BP 121/61
[2019-04-05] MEDS ORDERED: FLAG500T PO (12:56)
[2019-04-05 13:03] VITALS: BP 112/71
[2019-04-05] MEDS ORDERED: DIFL150T PO (13:04)
--- NOTE | 2019-04-05 13:21 | REP ---
LIMITED OB ULTRASOUND: Limited OB ultrasound performed to evaluate the cervix, using transabdominal and endovaginal technique. There is a single living intrauterine gestation. The estimated gestational age is 25 weeks 3 days based on LMP, EDC 07/16/2019. Cervix is closed. Cervical length is 4.7 cm. heart rate is 146 beats per minute. position is vertex. There is no cervical funneling. There is evidence of cervical cerclage which was placed at 25 weeks. Electronically Signed by Jared Miller MD 04/05/2019 04:50 P
--- NOTE | 2019-04-05 14:02 | IPNPDOC ---
Text Note Date of Service The patient was seen on 04/05/19. NOTE Subjective: Patient is a 34-year-old female who is a at 25.3 weeks gestation with an OLEG of 07/16/19 based off of first trimester ultrasound. She initiated care in her first trimester with [facility]. Her has been complicated by a history of delivery with IUGR, PCOS, current cerclage placement, CHTN, and a prior section. She presents to L&D with complaints of constant vaginal pressure. She reports she thought she was constipated and had a BM and it did not help her pressure. She reports having intercourse yesterday. She denies contractions, vaginal odor, vaginal itching, dysuria, vaginal bleeding, or leaking of fluid. She reports active movement. She reports she did not take her labetalol this morning. Medical history: PCOS, CHTN, varicella as a child, genital herpes Surgical: section Family history: diabetes, manic depressive and bipolar social history: Single; FOB not involved; denies being a smoker; denies current alcohol use, denies history of illicit drug use prior to or during Past : December 2009 at 30 weeks gestation section of living female weighting 2 lbs 10 oz complicated by IUGR Objective: See vital signs, labs and ultrasound below. FHR is 140 with appropriate variability per gestational age. No contractions noted. SSE: cervix appears thick/long and closed. No vaginal bleeding noted. Thin, white, frothy discharge noted in the vaginal canal. Wet prep obtained. Positive whiff test, pH 4.0, + clue cells, positive yeast. General: A+Ox3; Respiratory: regular rate and rhythm; Abdomen: gravid and soft to palpation. No tenderness with palpation. Assessment: IUP at 25.3 weeks gestation, pelvic pressure and discomfort, bacterial vaginosis, yeast infection, cerclage Plan: Reviewed findings with patient. Script sent for Flagyl and Diflucan to pharmacy. Discharged to home. Reviewed access to care, kick count, labor signs, and danger signs to report. VS,Fishbone, I+O VS, Fishbone, I+O Vital Signs Date Time Temp Pulse Resp B/P (MAP) Pulse Ox O2 Delivery O2 Flow Rate FiO2 04/05/19 12:02 73 18 119/57 (77) 04/05/19 11:10 97.9 Item Value Date Time Urine Color YELLOW 04/05/19 1157 Urine Appearance CLOUDY H 04/05/19 1157 Urine pH 7.0 UNITS 04/05/19 1157 Urine Specific Grubbs 1.004 04/05/19 1157 Urine Protein NEGATIVE mg/dL 04/05/19 1157 Urine Glucose (UA) NEGATIVE mg/dL 04/05/19 1157 Urine Ketones NEGATIVE mg/dL 04/05/19 1157 Urine Blood 1+ H 04/05/19 1157 Urine Nitrite NEGATIVE 04/05/19 1157 Urine Bilirubin NEGATIVE 04/05/19 1157 Urine Urobilinogen 0.2 mg/dL 04/05/19 1157 Urine Leukocyte Esterase 3+ H 04/05/19 1157 Urine WBC (Auto) 68 /HPF H 04/05/19 1157 Urine RBC (Auto) 3 /HPF 04/05/19 1157 Urine Hyaline Casts (Auto) 0 /LPF 04/05/19 1157 Urine Bacteria (Auto) 1+ H 04/05/197 Urine Squamous Epithelial Cells 10 /HPF 04/05/19 1157 Urine Amorphous Sediment SMALL H 04/05/19 1157 LIMITED OB ULTRASOUND: Limited OB ultrasound performed to evaluate the cervix, using transabdominal and endovaginal technique. There is a single living intrauterine gestation. The estimated gestational age is 25 weeks 3 days based on LMP, EDC 07/16/2019. Cervix is closed. Cervical length is 4.7 cm. heart rate is 146 beats per minute. position is vertex. There is no cervical funneling. There is evidence of cervical cerclage which was placed at 25 weeks. CHRISTEN LUQUE CNM Apr 05, 2019 14:02
[2019-06-20] MEDS ORDERED: PREN29TA4 PO (07:55)
[2019-06-20] MEDS ORDERED: FAMO1TAB11 PO (07:55)
== END 2019-04-05 13:10 | disposition home or self-care (01) ==
LOC: M LDO 10:51
PROVIDERS: ATTEND Advanced Practice Midwife
DX: O26.892 Other specified pregnancy related conditions, second trimester (principal); O23.592 Infection of other part of genital tract in pregnancy, second trimester; O34.32 Maternal care for cervical incompetence, second trimester; Z3A.25 25 weeks gestation of pregnancy

== ENCOUNTER → 2019-04-13 | Outpatient (CLI) | payer OTHER ==
[~2019-04-13] MED LIST changes: +DIFL150T PO; +FLAG500T PO; +SERT-155; -SERT50TA29; +VALA1TAB2 PO; -VALA1TAB64 PO
[2019-04-13 12:57] LABS: HEMATOCRIT 36.3 % (36.0-47.0); HEMOGLOBIN 12.7 g/dl (12.0-15.5); MEAN CORPUSCULAR HEMOGLOBIN 30.7 pg (27.0-33.0); MEAN CORPUSCULAR VOLUME 87.7 fl (80.0-96.0); PLATELET COUNT, AUTOMATED 138 10^3/uL (150-450); RED BLOOD COUNT 4.14 10^6/uL (4.00-5.40)
== END ==
LOC: M LAB 10:27
PROVIDERS: ATTEND Obstetrics & Gynecology
DX: O10.012 Pre-existing essential hypertension complicating pregnancy, second trimester (principal); Z3A.00 Weeks of gestation of pregnancy not specified

== ENCOUNTER 2019-04-16 14:12 | Emergency (ER) | payer OTHER ==
[~2019-04-16] VITALS: Ht 149.9 cm; Wt 95.5 kg
[2019-04-16 16:30] VITALS: BP 129/70
== END 2019-04-16 16:38 | disposition home or self-care (01) ==
LOC: M ED 14:12 → EDBD 14:12 → M ED 16:38
DX: O9A.312 Physical abuse complicating pregnancy, second trimester (principal); Z3A.27 27 weeks gestation of pregnancy; Z79.899 Other long term (current) drug therapy

== ENCOUNTER → 2019-04-18 | Outpatient (CLI) | payer OTHER ==
[~2019-04-18] MED LIST changes: +FAMO1TAB11 PO; +OXYC1TAB23 PO; +PREN29TA4 PO; -SERT-155; +SERT50TA29; -VALA1TAB2 PO; +VALA1TAB64 PO
== END ==
LOC: M LAB 07:14
PROVIDERS: ATTEND Obstetrics & Gynecology
DX: Z34.82 Encounter for supervision of other normal pregnancy, second trimester (principal); Z3A.00 Weeks of gestation of pregnancy not specified

== ENCOUNTER → 2019-04-22 | Outpatient (REF) | payer OTHER, MEDICAID ==
[~2019-04-22] MED LIST changes: -FAMO1TAB11 PO; -OXYC1TAB23 PO; -PREN29TA4 PO; +SERT-155; -SERT50TA29; +VALA1TAB2 PO; -VALA1TAB64 PO
[2019-04-22 15:36] LABS: CHLAMYDIA DNA AMPLIFICATION NEGATIVE (NEGATIVE); GC DNA AMPLIFICATION NEGATIVE (NEGATIVE)
== END ==
LOC: M LAB REF 12:37
PROVIDERS: ATTEND Physician Assistant Medical
DX: Z11.3 Encounter for screening for infections with a predominantly sexual mode of transmission (principal)

== ENCOUNTER 2019-04-30 22:42 | Outpatient (CLI) | payer OTHER, MEDICAID ==
[~2019-04-30] VITALS: Ht 149.9 cm; Wt 93.6 kg
== END 2019-05-01 00:05 | disposition home or self-care (01) ==
LOC: M LDO 22:42
PROVIDERS: ATTEND Obstetrics & Gynecology
DX: O26.853 Spotting complicating pregnancy, third trimester (principal); O99.89 Other specified diseases and conditions complicating pregnancy, childbirth and the puerperium; R05 Cough; O10.013 Pre-existing essential hypertension complicating pregnancy, third trimester; O34.33 Maternal care for cervical incompetence, third trimester; Z3A.29 29 weeks gestation of pregnancy

== ENCOUNTER 2019-05-01 14:15 | Outpatient (CLI) | payer MEDICAID, OTHER ==
[~2019-05-01] VITALS: Ht 149.9 cm; Wt 93.8 kg
[2019-05-01 14:51] VITALS: BP 123/70
[2019-05-01] MEDS ORDERED: ACETAMINOPHEN 500 MG TAB PO ONE (16:00)
[2019-05-01] MEDS ORDERED: ONDANSETRON 4 MG TAB (S0181) PO ONE (16:00)
[2019-05-01 16:32] VITALS: BP 124/72
[2019-05-01] MEDS ORDERED: LACTATED RINGER'S 1000 ML IV STA (17:30)
[2019-05-01] MEDS ORDERED: ONDANSETRON 4MG/2ML VIAL (J2405) IV PRN (17:45)
[2019-05-01 17:54] LABS: BASO % 0.3 % (0.0-1.0); EOS # 0.3 10^3/uL (0.0-0.5); EOS % 2.3 % (0.0-3.0); HEMATOCRIT 35.5 % (36.0-47.0); HEMOGLOBIN 12.4 g/dl (12.0-15.5); LYMPH # 1.9 10^3/uL (1.5-5.0); LYMPH % 13.1 % (24.0-44.0); MEAN CORPUSCULAR HEMOGLOBIN 30.2 pg (27.0-33.0); MEAN CORPUSCULAR HGB CONC 34.9 g/dl (32.0-36.5); MEAN CORPUSCULAR VOLUME 86.6 fl (80.0-96.0); MONO # 0.9 10^3/uL (0.0-0.8); MONO % 6.2 % (0.0-5.0); NEUTROPHILS # 11.3 10^3/uL (1.5-8.5); NEUTROPHILS % 77.5 % (36.0-66.0); PLATELET COUNT, AUTOMATED 145 10^3/uL (150-450); WHITE BLOOD COUNT 14.6 10^3/uL (4.0-10.0)
[2019-05-01] MEDS ORDERED: PROMETHAZINE INJ 25 MG/ML VIAL (J2550) IV ONE (18:00)
[2019-05-01] MEDS ORDERED: LR 1,000 ML IV SCH (18:00)
[2019-05-01 18:02] VITALS: BP 112/75
[2019-05-01 18:28] LABS: ALT/SGPT 49 U/L (12-78); AMYLASE 76 U/L (25-115); BILIRUBIN,TOTAL 0.3 MG/DL (0.2-1.0); BLOOD UREA NITROGEN 4 MG/DL (7-18); CALCIUM LEVEL 9.6 MG/DL (8.5-10.1); CARBON DIOXIDE LEVEL 21 MEQ/L (21-32); CHLORIDE LEVEL 104 MEQ/L (98-107); CREATININE FOR GFR 0.56 MG/DL (0.55-1.30); GLOMERULAR FILTRATION RATE > 60.0 (>60); GLUCOSE, FASTING 113 MG/DL (70-100); LIPASE 222 U/L (73-393); POTASSIUM SERUM 3.6 MEQ/L (3.5-5.1); SODIUM LEVEL 135 MEQ/L (136-145); TOTAL PROTEIN 6.8 GM/DL (6.4-8.2)
[2019-05-01 19:25] VITALS: BP 108/59
[2019-05-01] MEDS ORDERED: cloNIDine 0.2 MG TAB PO ONE (20:15)
[2019-05-01 20:27] VITALS: BP 108/59
[2019-05-01] MEDS ORDERED: cloNIDine 0.2 MG TAB PO SCH (21:00)
[2019-05-01] MEDS ORDERED: LABETALOL 100 MG TAB PO SCH (21:00)
[2019-05-01] MEDS ORDERED: metFORMIN (GLUCOPHAGE) 500 MG TAB PO SCH (21:00)
== END 2019-05-01 20:38 | disposition home or self-care (01) ==
LOC: M LDO 14:15
PROVIDERS: ATTEND Obstetrics & Gynecology
DX: O34.33 Maternal care for cervical incompetence, third trimester (principal); R19.7 Diarrhea, unspecified; O26.853 Spotting complicating pregnancy, third trimester; O47.03 False labor before 37 completed weeks of gestation, third trimester; Z3A.29 29 weeks gestation of pregnancy
CPT/HCPCS: 36415; 76815; 80053; 82150; 83690; 85025; J2405

== ENCOUNTER → 2019-06-20 | Outpatient (CLI) | payer OTHER, MEDICAID ==
[~2019-06-20] MED LIST changes: +FAMO1TAB11 PO; +PREN29TA4 PO; -SERT-155; +SERT50TA29
== END ==
LOC: M LAB 13:46
PROVIDERS: ATTEND Specialist
DX: O10.013 Pre-existing essential hypertension complicating pregnancy, third trimester (principal); Z3A.00 Weeks of gestation of pregnancy not specified

== ENCOUNTER 2019-07-04 04:49 | Inpatient (IN) | payer OTHER ==
[2019-07-04] VITALS (9 sets, daily range): BP systolic 99–148; BP diastolic 55–80
[~2019-07-04] VITALS: Ht 149.9 cm; Wt 97.0 kg
[~2019-07-04 04:49] MED LIST changes: -VALA1TAB2 PO; +VALA1TAB64 PO
[2019-07-04 05:48] LABS: HEMATOCRIT 39.3 % (36.0-47.0); MEAN CORPUSCULAR HEMOGLOBIN 29.5 pg (27.0-33.0); MEAN CORPUSCULAR HGB CONC 33.1 g/dl (32.0-36.5); MEAN CORPUSCULAR VOLUME 89.1 fl (80.0-96.0); PLATELET COUNT, AUTOMATED 165 10^3/uL (150-450); RED BLOOD COUNT 4.41 10^6/uL (4.00-5.40); WHITE BLOOD COUNT 15.1 10^3/uL (4.0-10.0)
[2019-07-04] MEDS ORDERED: LACTATED RINGER'S 1000 ML IV ONE (06:00)
[2019-07-04] MEDS ORDERED: ceFAZolin SOD 2 GM in IV 1 EA IV ONE (06:00)
[2019-07-04] MEDS ORDERED: BICITRA 30ML SOLN UDC PO ONE (06:00)
[2019-07-04] MEDS ORDERED: LR 1,000 ML IV SCH ×2 (06:00→09:15)
[2019-07-04] MEDS ORDERED: OXYC1TAB23 PO (07:17)
[2019-07-04] MEDS ORDERED: MORPHINE PRES-FREE INJ 10 MG/10 ML VIAL (J2274) As Ordered ONE (07:32)
[2019-07-04] MEDS ORDERED: NALBUPHINE HCL 10 MG/ML AMP (J2300) IV PRN (07:46)
[2019-07-04] MEDS ORDERED: METOCLOPRAMIDE INJ 10MG/2ML VIAL (J2765) IV PRN ×2 (07:46→09:15)
[2019-07-04] MEDS ORDERED: ONDANSETRON 4MG/2ML VIAL (J2405) IV PRN ×2 (07:46→09:15)
[2019-07-04] MEDS ORDERED: NALOXONE INJ 0.4 MG/1 ML VIAL (J2310) IV PRN ×2 (07:46)
[2019-07-04] MEDS ORDERED: OXYTOCIN DRIP 30 UNITS in IV 1 EA IV SCH (08:48)
[2019-07-04] MEDS ORDERED: MEASLES,MUMPS,RUBELLA VACCINE INJ (MMR-II) (90707) SC SCH (09:00)
[2019-07-04] MEDS ORDERED: PERCOCET 5MG/325MG TAB PO PRN (09:00)
[2019-07-04] MEDS ORDERED: ONDANSETRON 4 MG ORAL DISINTEGRATING TAB (Q0162 PER 1MG) PO PRN (09:00)
[2019-07-04] MEDS ORDERED: RHOGAM 300 MCG (1500 IU) INJ (J2790) IM SCH (09:00)
[2019-07-04] MEDS ORDERED: OXYTOCIN 30 UNITS IN 0.9% NaCl 500ML IV BAG (J2590) As Ordered ONE (09:02)
[2019-07-04] MEDS ORDERED: KETOROLAC 30 MG/ML VIAL (J1885) As Ordered ONE (09:03)
[2019-07-04] MEDS: KETOROLAC 30 MG/ML VIAL (J1885) IV SCH ×3 (09:10→21:22)
[2019-07-04] MEDS ORDERED: oxyCODONE 5MG TAB PO PRN (09:15)
[2019-07-04] MEDS ORDERED: fentaNYL 100 MCG/2 ML INJECTION (J3010) IV PRN (09:15)
--- NOTE | 2019-07-04 11:41 | RO ---
DATE OF PROCEDURE: 07/04/2019 PREDELIVERY DIAGNOSIS: Prior section, 38-2/7 weeks gestation, chronic hypertension, cervical incompetence and cerclage in place. POSTOPERATIVE DIAGNOSIS: Prior section, 38-2/7 weeks gestation, chronic hypertension, cervical incompetence and cerclage in place. PROCEDURE: Repeat low transverse section, removal of cervical cerclage. SURGEON: Angel Torres MD DUMP TRUCK DRIVER: Briana Cleaning CNM ANESTHESIA: Spinal. ESTIMATED BLOOD LOSS: 500 mL. URINE OUTPUT: 50 mL. FINDINGS: 6 pound 7 ounce (2930 gram) male infant, score 5, 8 and 8. Normal uterus. Filmy adhesions of the ovaries and fallopian tubes bilaterally. Otherwise, normal-appearing fallopian tubes. Day's cervical cerclage. DESCRIPTION OF PROCEDURE: The patient was taken to the operating room where spinal anesthesia was induced. She was prepped and draped in sterile fashion in the supine position. A Hernandez catheter was placed. A Pfannenstiel skin incision was made with the scalpel and carried through to the fascia. The fascia was nicked and extended. The peritoneal cavity was entered sharply. A bladder flap was created. A curvilinear incision was made in the lower uterine segment until bulging membranes were noted. This was extended manually. Membranes were ruptured of clear fluid. The infant was delivered from the vertex position without difficulty. The cord was doubly clamped and cut. The was handed off to awaiting nurses. The placenta was expressed. The uterus was exteriorized and cleared of clots and debris. Attempt was made to remove the cerclage abdominally. I elevated the cervix, however this was not feasible and was unable to be accomplished abdominally. The uterine incision was closed with #0 Vicryl in a running locked fashion. A second imbricating layer of #0 Vicryl was placed. The uterus was placed back in the abdominal cavity. Good hemostasis was noted. The peritoneum was closed with #2-0 Vicryl in a running fashion. The fascia was closed with #0 Vicryl in a running fashion. The deep layer was irrigated and closed with #3-0 chromic. The skin was closed with #4-0 Monocryl subcuticular sutures. A speculum was placed in the vagina and ring forceps used to grasp the suture of the cerclage. Surgical scissors was used to excise the cerclage completely. The speculum was removed. Briana Cleaning CNM assisted throughout the procedure. She help create each layer of the incision. She helped deliver the fetus, and close subsequent layers. CELINA
[2019-07-04] MEDS: LR 1,000 ML IV SCH ×2 (14:11→16:48)
[2019-07-04] MEDS: PRENATAL VITAMINS CHEWABLE TABLET PO SCH (14:12)
[2019-07-04] MEDS: diphenhydrAMINE INJ 50MG/ML VIAL (J1200) IV PRN ×2 (18:19→23:30)
[2019-07-04] MEDS: PERCOCET 5MG/325MG TAB PO PRN (20:36)
[2019-07-05] MEDS: LR 1,000 ML IV SCH (00:48)
[2019-07-05 02:00] VITALS: BP 120/56
[2019-07-05] MEDS: KETOROLAC 30 MG/ML VIAL (J1885) IV SCH (03:55)
[2019-07-05 05:43] VITALS: BP 132/78
[2019-07-05] MEDS: diphenhydrAMINE INJ 50MG/ML VIAL (J1200) IV PRN (06:23)
[2019-07-05] MEDS: PERCOCET 5MG/325MG TAB PO PRN ×3 (06:24→22:03)
[2019-07-05 06:44] LABS: HEMATOCRIT 34.4 % (36.0-47.0); HEMOGLOBIN 11.1 g/dl (12.0-15.5); MEAN CORPUSCULAR HEMOGLOBIN 29.4 pg (27.0-33.0); MEAN CORPUSCULAR HGB CONC 32.3 g/dl (32.0-36.5); MEAN CORPUSCULAR VOLUME 91.2 fl (80.0-96.0); PLATELET COUNT, AUTOMATED 144 10^3/uL (150-450); RED BLOOD COUNT 3.77 10^6/uL (4.00-5.40); WHITE BLOOD COUNT 17.1 10^3/uL (4.0-10.0)
--- NOTE | 2019-07-05 07:47 | IPNPDOC ---
Progress Note Date of Service: Jul 05, 2019 Day#: 1 Progress Note SUBJECT: She has been ambulating, voiding spontaneously without issue and tolerating regular diet. Breast feeding without issue. She does complain of itching. OBJECTIVE: VITAL SIGNS: Within normal limits, afebrile. Alert and oriented times three. Breath sounds clear to auscultation. Heart rate: Regular rate and rhythm, no murmurs, rubs or gallops. Abdomen: Fundus firm at U. Minimal lochia. ASSESSMENT: Day 1 postoperative PLAN: 1. Continue supportive nursing care. 2. continue with pain management. 3. Anticipate discharge to home tomorrow. VS, I&O, 24H, Fishbone Vital Signs/I&O Vital Signs Date Time Temp Pulse Resp B/P (MAP) Pulse Ox O2 Delivery O2 Flow Rate FiO2 07/05/19 06:24 17 07/05/19 05:43 98.2 56 132/78 (96) 97 Room Air I&O- Last 24 Hours up to 6 AM 07/05/19 06:00 Intake Total 3040 ml Output Total 1500 ml Balance 1540 ml Laboratory Data 24H LABS Laboratory Tests 2 07/05/19 06:14: Nucleated Red Blood Cells % (auto) 0.0 CBC/BMP Laboratory Tests 07/05/19 06:14 CHRISTEN LUQUE CNM Jul 05, 2019 07:47
[2019-07-05] MEDS ORDERED: ADACEL/BOOSTRIX VACCINE (DIPHTH/PERTUSS/ACELL/TETANUS)0.5ML SYR (90715) IM ONE (09:00)
[2019-07-05] MEDS: PRENATAL VITAMINS CHEWABLE TABLET PO SCH (09:26)
[2019-07-05 10:00] VITALS: BP 133/78
[2019-07-05] MEDS: diphenhydrAMINE 50 MG CAP PO PRN ×2 (10:58→19:32)
[2019-07-05] MEDS: IBUPROFEN 800 MG TAB PO SCH ×2 (10:58→18:23)
[2019-07-05] MEDS: DOCUSATE SODIUM 100 MG CAP PO SCH ×2 (10:58→19:32)
[2019-07-05 14:00] VITALS: BP 124/73
[2019-07-05 18:00] VITALS: BP 135/82
[2019-07-05 22:17] VITALS: BP 128/86
[2019-07-06] MEDS: diphenhydrAMINE 50 MG CAP PO PRN (02:13)
[2019-07-06] MEDS: PERCOCET 5MG/325MG TAB PO PRN ×2 (02:14→07:48)
[2019-07-06 02:17] VITALS: BP 125/62
[2019-07-06] MEDS: IBUPROFEN 800 MG TAB PO SCH ×2 (03:34→11:14)
[2019-07-06 06:13] VITALS: BP 127/77
[2019-07-06] MEDS: DOCUSATE SODIUM 100 MG CAP PO SCH (07:46)
[2019-07-06] MEDS: PRENATAL VITAMINS CHEWABLE TABLET PO SCH (07:46)
== END 2019-07-06 12:10 | disposition home or self-care (01) | DRG 540 ==
LOC: M LDI 04:49 → EDSTATUS 07:30 → M OBS 12:01
PROVIDERS: ADMIT Specialist; ATTEND Specialist
PROC: 0UPD7CZ Removal of Extraluminal Device from Uterus and Cervix, Via Natural or Artificial Opening (ICD-10-PCS; 2019-07-04)
PROC: 10D00Z1 Extraction of Products of Conception, Low, Open Approach (ICD-10-PCS; principal; 2019-07-04 07:30)
DX: O34.211 Maternal care for low transverse scar from previous cesarean delivery (principal); O10.92 Unspecified pre-existing hypertension complicating childbirth; Z37.0 Single live birth; Z3A.38 38 weeks gestation of pregnancy; O34.30 Maternal care for cervical incompetence, unspecified trimester

== ENCOUNTER → 2019-11-02 | Outpatient (REF) | payer OTHER ==
[~2019-11-02] MED LIST changes: +OXYC1TAB23 PO; +VALA1TAB5 PO; -VALA1TAB64 PO
== END ==
LOC: M LAB REF 11:38
PROVIDERS: ATTEND Physician Assistant
DX: N91.2 Amenorrhea, unspecified (principal)

== ENCOUNTER → 2020-04-10 | Outpatient (REF) | payer OTHER, MEDICAID ==
[2020-04-10 15:41] LABS: BASO # 0.1 10^3/uL (0.0-0.2); BASO % 0.6 % (0.0-1.0); EOS # 0.2 10^3/uL (0.0-0.5); EOS % 2.3 % (0.0-3.0); HEMATOCRIT 39.7 % (36.0-47.0); HEMOGLOBIN 13.7 g/dl (12.0-15.5); LYMPH # 2.9 10^3/uL (1.5-5.0); LYMPH % 28.8 % (24.0-44.0); MEAN CORPUSCULAR HEMOGLOBIN 31.1 pg (27.0-33.0); MEAN CORPUSCULAR HGB CONC 34.5 g/dl (32.0-36.5); MEAN CORPUSCULAR VOLUME 90.2 fl (80.0-96.0); MONO # 0.8 10^3/uL (0.0-0.8); MONO % 7.9 % (0.0-5.0); NEUTROPHILS # 5.9 10^3/uL (1.5-8.5); NEUTROPHILS % 59.9 % (36.0-66.0); PLATELET COUNT, AUTOMATED 182 10^3/uL (150-450); WHITE BLOOD COUNT 9.9 10^3/uL (4.0-10.0)
[2020-04-10 16:28] LABS: HEPATITIS B SURFACE ANTIGEN NEGATIVE (NEGATIVE); HEPATITIS C VIRUS ABY INDEX 0.1 INDEX (<0.8); HIV 1&2 SCREEN CENTAUR NEGATIVE (NEGATIVE)
[2020-04-10 17:05] LABS: CHLAMYDIA DNA AMPLIFICATION NEGATIVE (NEGATIVE); GC DNA AMPLIFICATION NEGATIVE (NEGATIVE)
== END ==
LOC: M PLALAB 13:45
PROVIDERS: ATTEND Specialist
DX: Z34.81 Encounter for supervision of other normal pregnancy, first trimester (principal); Z3A.00 Weeks of gestation of pregnancy not specified

== ENCOUNTER → 2020-05-17 | Outpatient (CLI) | payer OTHER, MEDICAID | LOC: M LABSMTC 10:23 | PROVIDERS: ATTEND Anesthesiology | DX: Z01.812 Encounter for preprocedural laboratory examination (principal); Z20.828 Contact with and (suspected) exposure to other viral communicable diseases | CPT/HCPCS: C9803; U0003 ==

== ENCOUNTER 2020-05-22 10:28 | Day surgery (SDC) | payer OTHER ==
[~2020-05-22] VITALS: Ht 149.9 cm; Wt 98.4 kg
[~2020-05-22 10:28] MED LIST changes: +LR 1,000 ML IV ONE
[2020-05-22] MEDS ORDERED: LIDOCAINE 1% SDV 30ML VIAL As Ordered ONE (10:45)
[2020-05-22 10:55] LABS: HEMATOCRIT 38.9 % (36.0-47.0); HEMOGLOBIN 13.3 g/dl (12.0-15.5); MEAN CORPUSCULAR HEMOGLOBIN 30.9 pg (27.0-33.0); MEAN CORPUSCULAR HGB CONC 34.2 g/dl (32.0-36.5); MEAN CORPUSCULAR VOLUME 90.5 fl (80.0-96.0); PLATELET COUNT, AUTOMATED 130 10^3/uL (150-450); WHITE BLOOD COUNT 9.9 10^3/uL (4.0-10.0)
[2020-05-22] MEDS ORDERED: ONDANSETRON 4MG/2ML VIAL IV PRN (13:00)
[2020-05-22] MEDS ORDERED: ACETAMINOPHEN 500 MG TAB PO ONE (13:00)
[2020-05-22] MEDS ORDERED: LR 1,000 ML IV SCH ×2 (13:00)
[2020-05-22 15:47] VITALS: BP 132/80
--- NOTE | 2020-05-22 21:27 | ROOPDOC ---
[facility] Report Of Operation Report of Operation DATE OF PROCEDURE: 05/22/20 PREPROCEDURE DIAGNOSES: 13 weeks gestation, h/o cervical incompetence. POSTPROCEDURE DIAGNOSES: same PROCEDURE: Day cervical cerclage. SURGEON: Norberto Gonzales MD ANESTHESIA: Spinal. ESTIMATED BLOOD LOSS: Approximately 20 mL. Urine Output: 100 ml COMPLICATIONS: none. FINDINGS: Grossly normal appearing cervix DESCRIPTION OF PROCEDURE: The patient was taken to the OR where spinal anesth esia was induced. She was prepped and draped in a sterile fashion in the dorsal lithotomy position. A weighted speculum was placed. A Briskey retractor was utilized to visualize the cervix. A ring forceps was used to grasp the anterior cervix. An O-Ethibond suture entered the cervix at the 12 o'clock position just distal to the bladder reflection. The cervix was circumscribed in a purse string fashion. the suture was tied at the 12 o'clock position. The excess suture was excised. All instruments were removed. Sponge, needle instrument counts were correct. NORBERTO GONZALES MD May 22, 2020 21:27
== END 2020-05-22 15:56 | disposition home or self-care (01) ==
LOC: M SDC 10:28
PROVIDERS: ATTEND Specialist
DX: O34.32 Maternal care for cervical incompetence, second trimester (principal); Z3A.13 13 weeks gestation of pregnancy

== ENCOUNTER → 2020-06-20 | Outpatient (REF) | payer OTHER, MEDICAID ==
[~2020-06-20] MED LIST changes: -LR 1,000 ML IV ONE
[2020-06-20 18:02] LABS: HEMOGLOBIN 11.9 g/dl (12.0-15.5); MEAN CORPUSCULAR HEMOGLOBIN 29.6 pg (27.0-33.0); MEAN CORPUSCULAR HGB CONC 32.2 g/dl (32.0-36.5); PLATELET COUNT, AUTOMATED 129 10^3/uL (150-450); RED BLOOD COUNT 4.02 10^6/uL (4.00-5.40); WHITE BLOOD COUNT 12.1 10^3/uL (4.0-10.0)
[2020-06-20 18:27] LABS: TOTAL PROTEIN,RANDOM URINE 38.2 MG/DL (0.0-12.0)
[2020-06-20 18:32] LABS: ALT/SGPT 32 U/L (12-78); BILIRUBIN,TOTAL 0.3 MG/DL (0.2-1.0); CREATININE FOR GFR 0.53 MG/DL (0.55-1.30); GLOMERULAR FILTRATION RATE > 60.0 (>60); LDH LACTATE DEHYDROGENASE 159 U/L (84-246); URIC ACID 3.3 MG/DL (2.6-6.0)
[2020-06-20 18:36] LABS: HEMOGLOBIN A1c 5.2 %
== END ==
LOC: M PLALAB 14:29
PROVIDERS: ATTEND Advanced Practice Midwife
DX: O34.211 Maternal care for low transverse scar from previous cesarean delivery (principal); Z3A.00 Weeks of gestation of pregnancy not specified

== ENCOUNTER → 2020-06-26 | Outpatient (CLI) | payer OTHER ==
--- NOTE | 2020-06-26 15:26 | REP ---
INDICATION: ANATOMY COMPARISON: None. TECHNIQUE: Transabdominal obstetrical ultrasound with color Doppler evaluation. FINDINGS: Examination demonstrates a single live intrauterine in variable presentation. motion is identified by technologist. Placenta is noted posterior and grade 1 with evidence for partial previa. Amniotic fluid volume is normal. Cervix measures 3.6 cm in length and appears closed.. Gestational age by LMP 19 weeks 0 days with OLEG 11/20/2020. Gestational age by current measurements 20 weeks 0 days with OLEG 11/13/2020. FHR equals 144 beats per minute. BPD: 4.6 cm 20 weeks 0 days HC: 17.0 cm 19 weeks 4 days AC: 14.8 cm 20 weeks 0 days FL: 3.3 cm is 20 weeks 2 days HL: 3.1 cm 20 weeks 3 days HC/AC: 1.15 Estimated weight 333 grams (53rd percentile based on age by current measurements; 96thpercentile based on age by LMP). Anatomical assessment demonstrates normal structures including cranium, choroid plexus, cavum, cerebellum/posterior fossa, facial features, lungs, four-chamber heart/ventricular outflow tracts, diaphragm, stomach, cord insertion/three-vessel cord, kidneys/bladder, spine, and extremities. IMPRESSION: 1. Single live intrauterine in variable presentation. Estimated weight and measurements as above. 2. Posterior grade 1 placenta with partial previa likely to resolve as progresses. 3. anatomical assessment is complete and normal. <Electronically signed by Km Cheng > 06/26/20 [id number]
== END ==
LOC: M WHC 12:43
PROVIDERS: ATTEND Advanced Practice Midwife
DX: Z34.92 Encounter for supervision of normal pregnancy, unspecified, second trimester (principal); Z3A.19 19 weeks gestation of pregnancy

== ENCOUNTER 2020-07-20 21:13 | Outpatient (CLI) | payer OTHER, MEDICAID ==
[~2020-07-20] VITALS: Ht 149.9 cm; Wt 102.0 kg
[2020-07-20 21:19] VITALS: BP 108/53
[2020-07-20 22:07] LABS: APPEARANCE, URINE HAZY (CLEAR); BACTERIA, URINE AUTO NEGATIVE (NEGATIVE); BILIRUBIN, URINE AUTO NEGATIVE (NEGATIVE); BLOOD, URINE BLOOD NEGATIVE (NEGATIVE); COLOR, URINE YELLOW (YELLOW); GLUCOSE, URINE (UA) AUTO NEGATIVE (NEGATIVE); KETONE, URINE AUTO 1+ mg/dL (NEGATIVE); LEUKOCYTE ESTERASE, URINE AUTO NEGATIVE (NEGATIVE); MUCUS, URINE SMALL (NEGATIVE); NITRITE, URINE AUTO NEGATIVE (NEGATIVE); PROTEIN, URINE AUTO 2+ mg/dL (NEGATIVE); RBC, URINE AUTO 1 /HPF (0-3); SPECIFIC GRAVITY URINE AUTO 1.017 (1.002-1.035); SQUAMOUS EPITHELIAL CELL UR AU 2 /HPF (0-6); UROBILINOGEN, URINE AUTO 0.2 mg/dL (0.0-2.0); WBC, URINE AUTO 3 /HPF (0-3)
--- NOTE | 2020-07-20 22:24 | IPNPDOC ---
Text Note Date of Service The patient was seen on 07/20/20. NOTE Outpatient 35yo OLEG 11/20/2020. Presents @ 22 weeks with complaints of contractions. Denies LOF, bleeding. Reports appropriate movement. Hx significant for cervical incompetence. Has cerclage in place. Previous x 2. No distress, smiling, resting in bed Abdomen soft, gravid. No UC palpated or on monitor FH via doppler 130. Spec exam cervix visually LTC, thin milky discharge in vault SVE OOP, LTC, cerclage in place. Pt reports doing multiple loads of laundry today. Denies further contractions. Desires discharge. Routine precautions. Keep next appt Sunshine King CNM Jul 20, 2020 22:24
== END 2020-07-20 22:26 | disposition home or self-care (01) ==
LOC: M LDO 21:13
PROVIDERS: ATTEND Advanced Practice Midwife
DX: O34.32 Maternal care for cervical incompetence, second trimester (principal); Z3A.22 22 weeks gestation of pregnancy

== ENCOUNTER → 2020-08-15 | Outpatient (REF) | payer OTHER, MEDICAID ==
[~2020-08-15] MED LIST changes: +GABA-282; -GABA-843
[2020-08-15 18:15] LABS: HEMATOCRIT 39.2 % (36.0-47.0); HEMOGLOBIN 12.5 g/dl (12.0-15.5); MEAN CORPUSCULAR HEMOGLOBIN 29.3 pg (27.0-33.0); MEAN CORPUSCULAR HGB CONC 31.9 g/dl (32.0-36.5); MEAN CORPUSCULAR VOLUME 91.8 fl (80.0-96.0); PLATELET COUNT, AUTOMATED 124 10^3/uL (150-450); RED BLOOD COUNT 4.27 10^6/uL (4.00-5.40); WHITE BLOOD COUNT 9.7 10^3/uL (4.0-10.0)
== END ==
LOC: M PLALAB 13:56
PROVIDERS: ATTEND Specialist
DX: Z34.82 Encounter for supervision of other normal pregnancy, second trimester (principal)

== ENCOUNTER → 2020-08-31 | Outpatient (REF) | payer OTHER, MEDICAID | LOC: M SFHCPLAZ 13:00 | PROVIDERS: ATTEND Family Medicine | DX: Z02.1 Encounter for pre-employment examination (principal) ==

== ENCOUNTER → 2020-10-05 | Outpatient (CLI) | payer MEDICAID, OTHER ==
[~2020-10-05] MED LIST changes: -LABE100T36 PO; +LABE100T5 PO
--- NOTE | 2020-10-05 15:33 | REP ---
INDICATION: GROWTH/UTERINE SIZE DATE DISCREPANCY COMPARISON: 06/26/2020 TECHNIQUE: Transabdominal and transvaginal obstetrical ultrasound with color Doppler evaluation. FINDINGS: Examination demonstrates a single live intrauterine in cephalic presentation. motion is identified by technologist. Placenta is noted posterior and grade 3 without evidence for placenta previa or abruption. Amniotic fluid volume is normal. There is funneling at the internal os and the closed cervical length measures 2.3 cm. Gestational age by LMP and 1st ultrasound 33 weeks 3 days with OLEG 11/20/2020. Gestational age by current measurements 33 weeks 5 days with OLEG 11/18/2020. FHR equals 163 beats per minute. BPD: 8.0 cm at 32 weeks 1 day HC: 30.7 cm at 34 weeks 1 day AC: 31.9 cm at 35 weeks 6 days FL: 6.5 cm at 33 weeks 2 days HL: 5.8 cm at 33 weeks 2 days HC/AC: 0.96 Estimated weight 2472 grams (78thpercentile). Anatomical assessment demonstrates normal structures cardiac activity, stomach, kidneys, bladder and 3 vessel cord. IMPRESSION: 1. Advanced gestation in cephalic presentation demonstrating appropriate weight and growth. 2. Shortened cervix with funneling at the internal os as described above. The patient gives a history of cerclage at 14 weeks. 3. No evidence for placenta previa. <Electronically signed by Km Cheng > 10/05/20 [id number]
== END ==
LOC: M WHC 13:49
PROVIDERS: ATTEND Obstetrics & Gynecology
DX: O26.843 Uterine size-date discrepancy, third trimester (principal); Z3A.33 33 weeks gestation of pregnancy

== ENCOUNTER → 2020-10-12 | Outpatient (CLI) | payer OTHER | LOC: M LAB 08:07 | PROVIDERS: ATTEND Obstetrics & Gynecology | DX: O24.419 Gestational diabetes mellitus in pregnancy, unspecified control (principal); O99.213 Obesity complicating pregnancy, third trimester; Z3A.00 Weeks of gestation of pregnancy not specified ==

== ENCOUNTER → 2020-10-29 | Outpatient (REF) | payer OTHER, MEDICAID | LOC: M SFHCWAGY 16:51 | PROVIDERS: ATTEND Specialist | DX: Z36.89 Encounter for other specified antenatal screening (principal); Z34.83 Encounter for supervision of other normal pregnancy, third trimester ==

== ENCOUNTER 2020-11-05 09:30 | Inpatient (IN) | payer OTHER ==
[~2020-11-05] VITALS: Ht 149.9 cm; Wt 96.9 kg
[~2020-11-05 09:30] MED LIST changes: +PRENTAB53 PO
[2020-11-12] VITALS (8 sets, daily range): BP systolic 121–157; BP diastolic 61–91
[2020-11-12] MEDS ORDERED: ceFAZolin SOD 2 GM in IV 1 EA IV ONE (06:30)
[2020-11-12] MEDS ORDERED: LR 800 ML IV ONE (06:30)
[2020-11-12] MEDS ORDERED: BICITRA 30ML SOLN UDC PO ONE (06:30)
[2020-11-12] MEDS ORDERED: LR 1,000 ML IV SCH ×2 (06:30→09:35)
[2020-11-12 06:59] LABS: HEMATOCRIT 39.9 % (36.0-47.0); HEMOGLOBIN 13.3 g/dl (12.0-15.5); MEAN CORPUSCULAR HEMOGLOBIN 28.9 pg (27.0-33.0); MEAN CORPUSCULAR HGB CONC 33.3 g/dl (32.0-36.5); MEAN CORPUSCULAR VOLUME 86.6 fl (80.0-96.0); PLATELET COUNT, AUTOMATED 176 10^3/uL (150-450); RED BLOOD COUNT 4.61 10^6/uL (4.00-5.40); WHITE BLOOD COUNT 12.4 10^3/uL (4.0-10.0)
[2020-11-12] MEDS ORDERED: diphenhydrAMINE 50MG/ML VIAL (J1200) IV PRN (08:04)
[2020-11-12] MEDS ORDERED: ONDANSETRON 4MG/2ML VIAL IV PRN ×3 (08:04→09:35)
[2020-11-12] MEDS ORDERED: NALBUPHINE HCL 10 MG/ML AMP (J2300) IV PRN (08:04)
[2020-11-12] MEDS ORDERED: NALOXONE INJ 0.4MG/1ML VIAL (J2310 PER 1MG) IV PRN ×2 (08:04)
[2020-11-12] MEDS ORDERED: MORPHINE PRES-FREE INJ 10 MG/10 ML VIAL (J2274) As Ordered ONE (08:15)
[2020-11-12] MEDS ORDERED: ONDANSETRON 4MG/2ML VIAL As Ordered ONE ×2 (08:15→10:25)
[2020-11-12] MEDS ORDERED: KETOROLAC 60MG 2ML VIAL As Ordered ONE (08:15)
[2020-11-12] MEDS ORDERED: dexameTHASONE 4 MG/ML 1ML VIAL (J1100 PER 1MG) As Ordered ONE (08:15)
[2020-11-12] MEDS ORDERED: PHENYLephrine 500MCG 5ML (100MCG/ML) SYRINGE As Ordered ONE ×2 (08:15→08:44)
[2020-11-12] MEDS ORDERED: OXYTOCIN 30 UNITS IN 0.9% NaCl 500ML IV BAG (J2590) As Ordered ONE ×2 (08:15→09:49)
[2020-11-12] MEDS ORDERED: ePHEDrine SULFATE 25 MG/5 ML(5MG/ML) SYRINGE As Ordered ONE (08:16)
[2020-11-12] MEDS ORDERED: RHOGAM 300 MCG (1500 IU) INJ (J2790) IM SCH (09:05)
[2020-11-12] MEDS ORDERED: OXYTOCIN DRIP 30 UNITS in IV 1 EA IV SCH (09:05)
[2020-11-12] MEDS ORDERED: DOCUSATE SODIUM 100MG CAPSULE PO PRN (09:05)
[2020-11-12] MEDS ORDERED: MEASLES,MUMPS,RUBELLA VACCINE INJ (MMR-II) (90707) SC SCH (09:05)
--- NOTE | 2020-11-12 09:23 | ROOPDOC ---
[facility] Report Of Operation Report of Operation DATE OF PROCEDURE: 11/12/20 Report of operation Preoperative diagnosis:38 6/7 weeks, cervical incompetence, prior x 2, gestational diabetes Postoperative diagnosis: same Procedure: Repeat low transverse section, bilateral tubal ligation, removal of cervical cerclage. Surgeon: Norberto Gonzales M.D. Asst.:Rachel Cleaning CNM EBL: 500 ml. Urine output: 100 mL's. Findings: 7 lbs. 7 oz. male , 's 8 and 9 g normal uterus, fallopian tubes, ovaries. Operative summary: Patient taken to the operating room where spinal anesthesia was induced. She was prepped draped sterile fashion in the supine position. A Hernandez catheter was placed. A Pfannenstiel skin incision was made with scalpel. Fascia was incised and extended bilaterally. The peritoneal cavity was entered. A Mobius retractor was placed. A bladder flap was created. A curvilinear incision was made in lower uterine segment until Clear fluid was noted. The incision was extended manually. The was delivered from the vertex position without difficulty. Cord was doubly clamped and cut. The was handed to awaiting nurses. . The placenta was expressed. Uterus was closed with O-Vicryl in a running locked fashion. A second imbricating layer of Vicryl was placed. Attention was turned to the fallopian tubes. A Amelia clamp was used to grasp the fallopian tubes at the midportion.. A window was created in the broad ligament free tie of 2-0 chromic was placed around the segment of tube on either side of the clamp. A Segment of tube was excised bilaterally and sent to pathyogesh funes. Peritoneum was closed with 2-0 Vicryl a running fashion. Fascia was closed with 0 Vicryl in running fashion. Skin was closed 4-0 Monocryl subcuticular sutures. Sponge, instrument and needle counts were correct. The wound was covered with Optifoam dressing. The patients legs were flexed into lithotomy position. A speculum was placed in the vagina. The cerclage was grasped with a April clamp and elevated. A scissor was used to excise the stitch in its entirety. The speculum was removed. Rachel Cleaning CNM, assisted with all aspects of the procedure. She helped close each layer of the incision and deliver the fetus. NORBERTO GONZALES MD Nov 12, 2020 09:23
[2020-11-12] MEDS ORDERED: oxyCODONE 5MG TAB PO PRN (09:35)
[2020-11-12] MEDS ORDERED: fentaNYL 100 MCG/2 ML INJECTION (J3010) As Ordered ONE (09:40)
[2020-11-12] MEDS ORDERED: METOCLOPRAMIDE INJ 10MG/2ML VIAL (J2765 PER 1) As Ordered ONE (09:41)
[2020-11-12] MEDS: METOCLOPRAMIDE INJ 10MG/2ML VIAL (J2765 PER 1) IV PRN ×2 (09:45→18:11)
[2020-11-12] MEDS: fentaNYL 100 MCG/2 ML INJECTION (J3010) IV PRN ×4 (09:45→10:09)
[2020-11-12] MEDS: LR 1,000 ML IV SCH ×3 (09:50→21:39)
[2020-11-12] MEDS: PERCOCET 5MG/325MG TAB PO PRN (11:14)
[2020-11-12] MEDS: KETOROLAC 30 MG/ML 1ML VIAL IV SCH ×2 (15:21→21:27)
[2020-11-12] MEDS: cloNIDine 0.2 MG TAB PO SCH (21:00)
[2020-11-12] MEDS: SERTRALINE HCL 50 MG TAB PO SCH (21:26)
[2020-11-12] MEDS: diphenhydrAMINE 25MG CAP PO SCH (21:26)
[2020-11-13] VITALS (7 sets, daily range): BP systolic 108–144; BP diastolic 57–83
[2020-11-13] MEDS: PERCOCET 5MG/325MG TAB PO PRN ×4 (01:01→21:26)
[2020-11-13] MEDS: SIMETHICONE 80MG CHEW TAB PO PRN (01:01)
[2020-11-13] MEDS: KETOROLAC 30 MG/ML 1ML VIAL IV SCH (03:15)
[2020-11-13 07:35] LABS: HEMATOCRIT 34.3 % (36.0-47.0); MEAN CORPUSCULAR HGB CONC 32.9 g/dl (32.0-36.5); MEAN CORPUSCULAR VOLUME 88.2 fl (80.0-96.0); PLATELET COUNT, AUTOMATED 150 10^3/uL (150-450); RED BLOOD COUNT 3.89 10^6/uL (4.00-5.40); WHITE BLOOD COUNT 16.1 10^3/uL (4.0-10.0)
[2020-11-13 07:37] LABS: HEMOGLOBIN 11.3 g/dl (12.0-15.5)
[2020-11-13] MEDS: metFORMIN (GLUCOPHAGE) 500MG TAB PO SCH ×2 (08:04→18:15)
[2020-11-13] MEDS: PRENATAL VITAMINS CHEWABLE TABLET PO SCH (08:04)
[2020-11-13] MEDS: IBUPROFEN 800 MG TAB PO SCH ×2 (10:32→18:16)
[2020-11-13] MEDS ORDERED: OXYC1TAB23 PO ×2 (13:16→19:09)
[2020-11-13] MEDS ORDERED: IBUP80TA PO (13:18)
[2020-11-13] MEDS: diphenhydrAMINE 25MG CAP PO SCH (20:26)
[2020-11-13] MEDS: SERTRALINE HCL 50 MG TAB PO SCH (20:30)
[2020-11-13] MEDS: cloNIDine 0.2 MG TAB PO SCH (20:31)
[2020-11-14 02:00] VITALS: BP 104/57
[2020-11-14] MEDS: IBUPROFEN 800 MG TAB PO SCH ×2 (02:39→10:57)
[2020-11-14] MEDS: PERCOCET 5MG/325MG TAB PO PRN ×2 (05:20→08:44)
[2020-11-14 06:00] VITALS: BP 108/63
[2020-11-14] MEDS: metFORMIN (GLUCOPHAGE) 500MG TAB PO SCH (08:44)
[2020-11-14] MEDS: SIMETHICONE 80MG CHEW TAB PO PRN (08:44)
[2020-11-14] MEDS: PRENATAL VITAMINS CHEWABLE TABLET PO SCH (08:44)
[2020-11-14 10:00] VITALS: BP 129/69
--- NOTE | 2020-11-14 13:38 | DSES ---
DISCHARGE SUMMARY DATE OF ADMISSION: 11/12/2020 DATE OF DISCHARGE: 11/14/2020 DISCHARGE DIAGNOSIS: Repeat section at term, bilateral tubal ligation, stable for discharge home. SURGEON: Dr. Angel Torres. CAMERA TUNING ENGINEER: Rachel Cleaning CNM. HISTORY: Dede is a 35-year-old 3, para 2-1-0-3 now who was admitted for a repeat section at 38-6/7ths weeks gestation due to prior section, history of cervical incompetence, and gestational diabetes in . She did deliver a 7 pound 7 ounce male. Apgars were 8 and 9. Her postoperative course was uncomplicated. She had an estimated blood loss of 500 mL. Her postoperative course on maternity has been uncomplicated. She has been out of bed for self care, jaja care, and infant care. She is tolerating p.o. fluids and a regular diet. She is voiding without difficulty and passing flatus, and her pain has been well managed with p.o. pain medication. She is requesting discharge home today. PHYSICAL EXAMINATION: Temperature 98.1, pulse 54, respirations 16, BP 108/63. She is alert and oriented x3. No discomfort. Her breasts are soft, nontender. Nipples are intact. Fundus firm at one finger breadth below umbilicus. The dressing is intact. There is no drainage observed. Perineum is intact with lochia rubra scant. Bilateral lower extremities with +1 pitting edema. LABORATORY DATA: Preoperative CBC on 11/12/2020 was a hemoglobin of 13.3, hematocrit 39.9, platelets 176. Postoperative CBC on 11/14/2020 was hemoglobin 11.3, hematocrit 34.3, and platelets 150. PLAN: Discharge the patient home today. E-prescriptions have been prescribed by Dr. Angel Torres to her pharmacy for Percocet and ibuprofen p.r.n. I did review discharge instructions that include breast care, incision care, jaja care, pelvic rest, activity and lifting restrictions, other danger signs to report to her provider, and access to care. She is to be seen at [facility] for her two week incision check and an eight week visit. The patient has had all of her questions answered and is requesting discharge home.
== END 2020-11-14 13:25 | disposition home or self-care (01) | DRG 540 ==
LOC: M LDI 11-12 05:56 → EEVIPCON 11-12 05:56 → M OBS 11-12 11:30
PROVIDERS: ADMIT Specialist; ATTEND Specialist
PROC: 0UB70ZZ Excision of Bilateral Fallopian Tubes, Open Approach (ICD-10-PCS; 2020-11-12)
PROC: 10D00Z1 Extraction of Products of Conception, Low, Open Approach (ICD-10-PCS; principal; 2020-11-12 07:30)
DX: O34.211 Maternal care for low transverse scar from previous cesarean delivery (principal); O09.523 Supervision of elderly multigravida, third trimester; Z37.0 Single live birth; Z30.2 Encounter for sterilization; Z79.899 Other long term (current) drug therapy; Z91.018 Allergy to other foods; Z90.10 Acquired absence of unspecified breast and nipple; Z3A.38 38 weeks gestation of pregnancy

== ENCOUNTER → 2020-11-07 | Outpatient (CLI) | payer OTHER, MEDICAID ==
[~2020-11-07] MED LIST changes: +IBUP80TA PO
== END ==
LOC: M LABSMTC 09:40
PROVIDERS: ATTEND Anesthesiology
DX: Z01.812 Encounter for preprocedural laboratory examination (principal)

== ENCOUNTER 2020-12-28 09:57 | Emergency (ER) | payer MEDICAID, OTHER ==
[~2020-12-28] VITALS: Ht 149.9 cm; Wt 89.5 kg
[2020-12-28] MEDS ORDERED: ZOLO100T PO (10:20)
[2020-12-28] MEDS ORDERED: METF-839 PO (10:20)
[2020-12-28 11:18] LABS: BASO # 0.1 10^3/uL (0.0-0.2); BASO % 0.8 % (0.0-1.0); EOS # 0.4 10^3/uL (0.0-0.5); EOS % 3.5 % (0.0-3.0); HEMATOCRIT 42.9 % (36.0-47.0); HEMOGLOBIN 14.2 g/dl (12.0-15.5); LYMPH # 2.7 10^3/uL (1.5-5.0); LYMPH % 24.8 % (24.0-44.0); MEAN CORPUSCULAR HGB CONC 33.1 g/dl (32.0-36.5); MEAN CORPUSCULAR VOLUME 87.6 fl (80.0-96.0); MONO # 0.5 10^3/uL (0.0-0.8); MONO % 4.4 % (2.0-8.0); NEUTROPHILS # 7.2 10^3/uL (1.5-8.5); NEUTROPHILS % 66.1 % (36.0-66.0); PLATELET COUNT, AUTOMATED 217 10^3/uL (150-450); WHITE BLOOD COUNT 10.9 10^3/uL (4.0-10.0)
[2020-12-28 11:52] LABS: ALBUMIN 3.8 GM/DL (3.2-5.2); ALT/SGPT 47 U/L (12-78); BILIRUBIN,DIRECT 0.1 MG/DL (0.0-0.2); BILIRUBIN,TOTAL 0.5 MG/DL (0.2-1.0); BLOOD UREA NITROGEN 10 MG/DL (7-18); CALCIUM LEVEL 9.4 MG/DL (8.5-10.1); CARBON DIOXIDE LEVEL 28 MEQ/L (21-32); CHLORIDE LEVEL 104 MEQ/L (98-107); CREATININE FOR GFR 0.77 MG/DL (0.55-1.30); GLOMERULAR FILTRATION RATE > 60.0 (>60); GLUCOSE, FASTING 92 MG/DL (70-100); LIPASE 303 U/L (73-393); SODIUM LEVEL 138 MEQ/L (136-145); TOTAL PROTEIN 7.8 GM/DL (6.4-8.2)
[2020-12-28] MEDS ORDERED: NS 1,000 ML IV ONE (12:05)
[2020-12-28] MEDS ORDERED: ONDANSETRON 4MG/2ML VIAL IV ONE (12:05)
[2020-12-28] MEDS ORDERED: KETOROLAC 30 MG/ML 1ML VIAL IV ONE (12:05)
[2020-12-28] MEDS ORDERED: ISOVUE-370 76% 100ML VIAL As Ordered ONE (12:09)
--- NOTE | 2020-12-28 13:04 | REP ---
INDICATION: rlq pain. COMPARISON: None TECHNIQUE: Axial contrast-enhanced images from the lung bases to the pubic symphysis using 100 cc Isovue 370 intravenous contrast material. Coronal and sagittal reformations obtained. This CT examination was performed using the following dose reduction techniques: Automated exposure control, adjustment of mA and/or kv according to the patient's size, and the use of iterative reconstruction technique. FINDINGS: Lung bases are clear. Liver, spleen, pancreas, and bilateral adrenal glands are normal. Cholelithiasis noted without acute cholecystitis. Kidneys demonstrate small nonobstructing nephroliths up to 2 mm. The enteric system including stomach, small, and large bowel appears normal. No evidence for obstruction or acute inflammatory process. Normal terminal ileum and appendix are identified in the right lower quadrant. Colonic diverticula noted without acute diverticulitis. Pelvis demonstrates normal bladder and age-appropriate prostate/seminal vesicles. No ascites. No free air. No intraperitoneal or retroperitoneal adenopathy. Abdominal aorta and vasculature appear normal. Musculoskeletal structures are intact and without acute osseous abnormality. IMPRESSION: No acute abdominopelvic pathology appreciated. Cholelithiasis. Nephrolithiasis. Diverticulosis. <Electronically signed by Km Cheng > 12/28/20 [id number]
[2020-12-28 15:09] VITALS: BP 140/90
== END 2020-12-28 15:14 | disposition home or self-care (01) ==
LOC: M ED 09:57
DX: G89.18 Other acute postprocedural pain (principal); R10.30 Lower abdominal pain, unspecified; K80.20 Calculus of gallbladder without cholecystitis without obstruction; N20.0 Calculus of kidney; K57.30 Diverticulosis of large intestine without perforation or abscess without bleeding; R51.9 Headache, unspecified; I10 Essential (primary) hypertension; E28.2 Polycystic ovarian syndrome; F90.9 Attention-deficit hyperactivity disorder, unspecified type; F33.9 Major depressive disorder, recurrent, unspecified; F41.9 Anxiety disorder, unspecified; Z88.0 Allergy status to penicillin; Z79.899 Other long term (current) drug therapy
CPT/HCPCS: 74177; 80048; 80076; 81001; 83690; 85025; 96361; 96374; 96375; 99284; J1885; J2405; Q9967

== ENCOUNTER 2021-01-11 22:42 | Emergency (ER) | payer MEDICAID, OTHER ==
[~2021-01-11] VITALS: Ht 149.9 cm; Wt 90.0 kg
[~2021-01-11 22:42] MED LIST changes: +METF-839 PO; +ZOLO100T PO
[2021-01-12 00:13] LABS: HEMATOCRIT 43.6 % (36.0-47.0); HEMOGLOBIN 14.4 g/dl (12.0-15.5); MEAN CORPUSCULAR HEMOGLOBIN 29.3 pg (27.0-33.0); MEAN CORPUSCULAR VOLUME 88.6 fl (80.0-96.0); PLATELET COUNT, AUTOMATED 176 10^3/uL (150-450); RED BLOOD COUNT 4.92 10^6/uL (4.00-5.40); WHITE BLOOD COUNT 13.5 10^3/uL (4.0-10.0)
[2021-01-12 00:19] LABS: AMPHETAMINES LEVEL URINE NEGATIVE (NEGATIVE); BARBITURATES URINE NEGATIVE (NEGATIVE); BENZODIAZEPINES URINE NEGATIVE (NEGATIVE); CANNABINOIDS URINE NEGATIVE (NEGATIVE); COCAINE METABOLITE URINE POSITIVE (NEGATIVE); METHADONE URINE NEGATIVE (NEGATIVE); OPIATES URINE NEGATIVE (NEGATIVE); PHENCYCLIDINE URINE NEGATIVE (NEGATIVE)
[2021-01-12 00:21] LABS: HCG, SERUM QUALITATIVE NEGATIVE (NEGATIVE)
[2021-01-12 00:29] LABS: ACETAMINOPHEN LEVEL < 2.0 UG/ML (10.0-30.0); ALBUMIN 3.9 GM/DL (3.2-5.2); ALT/SGPT 43 U/L (12-78); BILIRUBIN,DIRECT 0.1 MG/DL (0.0-0.2); BILIRUBIN,TOTAL 0.6 MG/DL (0.2-1.0); BLOOD UREA NITROGEN 6 MG/DL (7-18); CALCIUM LEVEL 9.2 MG/DL (8.5-10.1); CARBON DIOXIDE LEVEL 20 MEQ/L (21-32); CHLORIDE LEVEL 110 MEQ/L (98-107); CREATININE FOR GFR 0.61 MG/DL (0.55-1.30); ETHYL ALCOHOL (ETHANOL) 0.139 % (0.000-0.010); GLOMERULAR FILTRATION RATE > 60.0 (>60); GLUCOSE, FASTING 88 MG/DL (70-100); POTASSIUM SERUM 4.4 MEQ/L (3.5-5.1); SALICYLATE LEVEL 1.7 MG/DL (5.0-30.0); SODIUM LEVEL 141 MEQ/L (136-145); TOTAL PROTEIN 8.3 GM/DL (6.4-8.2)
[2021-01-12 08:23] LABS: RSV AMPLIFICATION NEGATIVE (NEGATIVE)
[2021-01-12] MEDS ORDERED: SERTRALINE HCL 50 MG TAB PO ONE (10:25)
[2021-01-12] MEDS ORDERED: SERT50TA29 PO (10:31)
[2021-01-12] MEDS ORDERED: ZOLO100T PO (10:31)
[2021-01-12 13:36] VITALS: BP 151/87
--- NOTE | 2021-01-14 16:29 | ECGEPIP ---
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
== END 2021-01-12 14:07 ==
LOC: M ED 22:42
DX: R45.851 Suicidal ideations (principal); F14.10 Cocaine abuse, uncomplicated; F12.10 Cannabis abuse, uncomplicated; F17.200 Nicotine dependence, unspecified, uncomplicated; Z91.010 Allergy to peanuts; Z91.018 Allergy to other foods

== ENCOUNTER → 2021-02-11 | Outpatient (REF) | payer OTHER, MEDICAID ==
[~2021-02-11] MED LIST changes: +SERT50TA29 PO
[2021-02-11 14:28] LABS: GC DNA AMPLIFICATION NEGATIVE (NEGATIVE)
== END ==
LOC: M LAB REF 11:39
PROVIDERS: ATTEND Physician Assistant Medical
DX: Z20.2 Contact with and (suspected) exposure to infections with a predominantly sexual mode of transmission (principal)

== ENCOUNTER 2021-05-04 14:45 | Emergency (ER) | payer MEDICAID, OTHER ==
[~2021-05-04] VITALS: Ht 149.9 cm; Wt 87.5 kg
[2021-05-04 14:46] VITALS: BP 128/70
[2021-05-04 16:12] LABS: HCG, SERUM QUALITATIVE NEGATIVE (NEGATIVE)
[2021-05-04 17:19] LABS: GC DNA AMPLIFICATION NEGATIVE (NEGATIVE)
--- NOTE | 2021-05-04 17:25 | REP ---
INDICATION: pelvic pain, hx ovarian cysts, eval for cyst/torsion. COMPARISON: Comparison CT study of the pelvis is from December 28, 2020. TECHNIQUE: Transvaginal pelvic sonography. FINDINGS: Uterine dimensions are normal at 9.5 x 4.2 x 6.1 cm. Endometrial echo is 0.9 cm thick. No focal uterine mass is seen. No free fluid is noted. Normal ovaries are seen. Right ovarian dimensions are 3.4 x 2.6 x 2.8 cm. There is a 2.2 cm involuting cyst in the right ovary. Doppler flow is present in the right ovary with resistive index 0.38. The left ovary measures 2.7 x 2.2 x 2.5 cm. It is morphologically unremarkable. Doppler flow is present in the left ovary. Resistive index is 0.38. IMPRESSION: Normal pelvic sonography. <Electronically signed by Job Levy > 05/04/21 [id number]
[2021-05-05] MEDS ORDERED: METR-265 PO (15:19)
[2021-05-06 10:08] LABS: HEPATITIS B SURFACE ANTIBODY NEGATIVE (POSITIVE); HEPATITIS B SURFACE ANTIGEN NEGATIVE (NEGATIVE); HIV 1&2 SCREEN CENTAUR NEGATIVE (NEGATIVE)
== END 2021-05-04 18:28 | disposition home or self-care (01) ==
LOC: M ED 14:45
DX: R10.2 Pelvic and perineal pain (principal); G89.29 Other chronic pain; M54.50 Low back pain, unspecified; E28.2 Polycystic ovarian syndrome; F90.9 Attention-deficit hyperactivity disorder, unspecified type; F17.200 Nicotine dependence, unspecified, uncomplicated; Z91.010 Allergy to peanuts; Z91.018 Allergy to other foods; Z79.899 Other long term (current) drug therapy

== ENCOUNTER 2021-12-23 13:00 | Outpatient (RCR) | payer MEDICAID ==
[~2021-12-23 13:00] MED LIST changes: +METR-265 PO
== END 2021-12-31 ==
LOC: M OUTALCOH 13:00
PROVIDERS: ATTEND Psychiatry & Neurology Psychiatry
DX: F10.20 Alcohol dependence, uncomplicated (principal)

== ENCOUNTER 2022-01-28 21:36 | Emergency (ER) | payer MEDICAID ==
[~2022-01-28] VITALS: Ht 149.9 cm; Wt 198.0 kg
[2022-01-28 21:37] VITALS: BP 154/82
== END 2022-01-28 22:10 | disposition left against medical advice (07) ==
LOC: M ED 21:36
DX: Z53.21 Procedure and treatment not carried out due to patient leaving prior to being seen by health care provider (principal)

== ENCOUNTER → 2022-02-05 | Outpatient (CLI) | payer MEDICAID | LOC: M OUTALCOH 07:39 | PROVIDERS: ATTEND Psychiatry & Neurology Psychiatry | DX: Z13.39 Encounter for screening examination for other mental health and behavioral disorders (principal); Z53.9 Procedure and treatment not carried out, unspecified reason ==

== ENCOUNTER 2022-02-26 14:56 | Outpatient (RCR) | payer MEDICAID ==
[~2022-02-26 14:56] MED LIST changes: -LABE100T5 PO; +LABE100T71 PO
== END 2022-03-02 ==
LOC: M OUTALCOH 14:56
PROVIDERS: ATTEND Psychiatry & Neurology Psychiatry
DX: F10.20 Alcohol dependence, uncomplicated (principal); F12.20 Cannabis dependence, uncomplicated

== ENCOUNTER → 2022-04-02 | Outpatient (RCR) | payer MEDICAID | LOC: M OUTALCOH 03-03 14:00 | PROVIDERS: ATTEND Psychiatry & Neurology Psychiatry | DX: F10.20 Alcohol dependence, uncomplicated (principal); F12.20 Cannabis dependence, uncomplicated ==

== ENCOUNTER → 2022-04-21 | Outpatient (CLI) | payer MEDICAID ==
[2022-04-21 15:51] LABS: BASO # 0.1 10^3/uL (0.0-0.2); BASO % 0.5 % (0.0-1.0); EOS # 0.2 10^3/uL (0.0-0.5); EOS % 2.1 % (0.0-3.0); HEMATOCRIT 45.1 % (36.0-47.0); HEMOGLOBIN 14.7 g/dl (12.0-15.5); LYMPH # 3.1 10^3/uL (1.5-5.0); LYMPH % 30.4 % (24.0-44.0); MEAN CORPUSCULAR HEMOGLOBIN 30.3 pg (27.0-33.0); MEAN CORPUSCULAR HGB CONC 32.6 g/dl (32.0-36.5); MONO # 0.8 10^3/uL (0.0-0.8); MONO % 7.6 % (2.0-8.0); NEUTROPHILS % 58.8 % (36.0-66.0); PLATELET COUNT, AUTOMATED 294 10^3/uL (150-450); RED BLOOD COUNT 4.85 10^6/uL (4.00-5.40); WHITE BLOOD COUNT 10.2 10^3/uL (4.0-10.0)
[2022-04-21 16:18] LABS: HEMOGLOBIN A1c 5.4 %
[2022-04-21 17:00] LABS: ALT/SGPT 43 U/L (12-78); BILIRUBIN,DIRECT 0.1 MG/DL (0.0-0.2); BILIRUBIN,TOTAL 0.3 MG/DL (0.2-1.0); BLOOD UREA NITROGEN 12 MG/DL (7-18); CALCIUM LEVEL 9.2 MG/DL (8.5-10.1); CARBAMAZEPINE (TEGRETOL) LEVEL 7.9 UG/ML (4.0-10.0); CARBON DIOXIDE LEVEL 25 MEQ/L (21-32); CHLORIDE LEVEL 103 MEQ/L (98-107); CHOLESTEROL LEVEL 186 MG/DL (<200); CHOLESTEROL RISK RATIO 3.795 (<5); CREATININE FOR GFR 0.66 MG/DL (0.55-1.30); GLOMERULAR FILTRATION RATE > 60.0 (>60); GLUCOSE, FASTING 81 MG/DL (70-100); HDL CHOLESTEROL 49 MG/DL (>40); LDL CHOLESTEROL 95 MG/DL (<100); NON-HDL-C 137 MG/DL; SODIUM LEVEL 135 MEQ/L (136-145); TOTAL PROTEIN 8.1 GM/DL (6.4-8.2); TRIGLYCERIDES LEVEL 211 MG/DL (<150)
== END ==
LOC: M PLALAB 12:31
PROVIDERS: ATTEND Psychiatry & Neurology Psychiatry
DX: F41.8 Other specified anxiety disorders (principal); F10.21 Alcohol dependence, in remission; Z65.3 Problems related to other legal circumstances

== ENCOUNTER → 2022-04-21 | Outpatient (CLI) | payer MEDICAID, OTHER ==
[2022-04-21 18:11] LABS: ALBUMIN 4.1 GM/DL (3.2-5.2); ALT/SGPT 42 U/L (12-78); BILIRUBIN,DIRECT 0.1 MG/DL (0.0-0.2); BILIRUBIN,TOTAL 0.4 MG/DL (0.2-1.0); TOTAL PROTEIN 8.1 GM/DL (6.4-8.2)
[2022-04-21 19:34] LABS: HIV 1&2 SCREEN CENTAUR NEGATIVE (NEGATIVE)
[2022-04-21 21:50] LABS: GC DNA AMPLIFICATION NEGATIVE (NEGATIVE)
== END ==
LOC: M PLALAB 15:56
PROVIDERS: ATTEND Student in an Organized Health Care Education/Training Program
DX: A60.00 Herpesviral infection of urogenital system, unspecified (principal); F10.10 Alcohol abuse, uncomplicated

== ENCOUNTER → 2022-05-02 | Outpatient (RCR) | payer MEDICAID | LOC: M OUTALCOH 04-14 08:40 | PROVIDERS: ATTEND Psychiatry & Neurology Psychiatry | DX: F10.20 Alcohol dependence, uncomplicated (principal); F12.20 Cannabis dependence, uncomplicated ==

== ENCOUNTER 2022-05-07 13:26 | Outpatient (RCR) | payer MEDICAID | END 2022-06-02 | LOC: M OUTALCOH 13:26 | PROVIDERS: ATTEND Psychiatry & Neurology Psychiatry | DX: F10.20 Alcohol dependence, uncomplicated (principal); F12.20 Cannabis dependence, uncomplicated ==

== ENCOUNTER 2022-05-29 09:00 | Outpatient (RCR) | payer MEDICAID | END 2022-06-02 | LOC: M OUTALCOH 09:00 | PROVIDERS: ATTEND Psychiatry & Neurology Psychiatry | DX: F10.20 Alcohol dependence, uncomplicated (principal); F12.20 Cannabis dependence, uncomplicated ==

== ENCOUNTER → 2022-07-02 | Outpatient (RCR) | payer MEDICAID | LOC: M OUTALCOH 06-03 10:47 | PROVIDERS: ATTEND Psychiatry & Neurology Psychiatry | DX: F10.20 Alcohol dependence, uncomplicated (principal); F12.20 Cannabis dependence, uncomplicated ==

== ENCOUNTER 2022-07-24 09:00 | Outpatient (RCR) | payer MEDICAID | END 2022-08-02 | LOC: M OUTALCOH 09:00 | PROVIDERS: ATTEND Psychiatry & Neurology Psychiatry | DX: F10.20 Alcohol dependence, uncomplicated (principal); F12.20 Cannabis dependence, uncomplicated ==

== ENCOUNTER 2022-09-01 15:00 | Outpatient (RCR) | payer MEDICAID | END 2022-09-02 | LOC: M OUTALCOH 15:00 | PROVIDERS: ATTEND Psychiatry & Neurology Psychiatry | DX: F10.20 Alcohol dependence, uncomplicated (principal); F12.20 Cannabis dependence, uncomplicated ==

== ENCOUNTER 2022-09-29 14:43 | Outpatient (RCR) | payer MEDICAID | END 2022-09-30 | LOC: M OUTALCOH 14:43 | PROVIDERS: ATTEND Psychiatry & Neurology Psychiatry | DX: F10.20 Alcohol dependence, uncomplicated (principal); F12.20 Cannabis dependence, uncomplicated ==

== ENCOUNTER 2022-10-29 10:58 | Outpatient (RCR) | payer MEDICAID | END 2022-10-31 | LOC: M OUTALCOH 10:58 | PROVIDERS: ATTEND Psychiatry & Neurology Psychiatry | DX: F10.20 Alcohol dependence, uncomplicated (principal); F12.20 Cannabis dependence, uncomplicated ==

== ENCOUNTER 2022-11-24 14:00 | Outpatient (RCR) | payer MEDICAID | END 2022-11-30 | LOC: M OUTALCOH 14:00 | PROVIDERS: ATTEND Psychiatry & Neurology Psychiatry | DX: F10.10 Alcohol abuse, uncomplicated (principal); F12.20 Cannabis dependence, uncomplicated ==

== ENCOUNTER → 2022-12-31 | Outpatient (RCR) | payer MEDICAID | LOC: M OUTALCOH 12-04 16:06 | PROVIDERS: ATTEND Psychiatry & Neurology Psychiatry | DX: F10.20 Alcohol dependence, uncomplicated (principal); F12.20 Cannabis dependence, uncomplicated ==

== ENCOUNTER 2023-01-28 16:00 | Outpatient (RCR) | payer MEDICAID | END 2023-01-30 | LOC: M OUTALCOH 16:00 | PROVIDERS: ATTEND Psychiatry & Neurology Psychiatry | DX: F10.20 Alcohol dependence, uncomplicated (principal); F12.20 Cannabis dependence, uncomplicated ==

== ENCOUNTER 2023-02-18 16:00 | Outpatient (RCR) | payer MEDICAID | END 2023-03-02 | LOC: M OUTALCOH 16:00 | PROVIDERS: ATTEND Psychiatry & Neurology Psychiatry | DX: F10.20 Alcohol dependence, uncomplicated (principal); F12.20 Cannabis dependence, uncomplicated ==

== ENCOUNTER 2023-03-25 15:00 | Outpatient (RCR) | payer MEDICAID | END 2023-04-02 | LOC: M OUTALCOH 15:00 | PROVIDERS: ATTEND Psychiatry & Neurology Psychiatry | DX: F10.20 Alcohol dependence, uncomplicated (principal); F12.20 Cannabis dependence, uncomplicated ==

== ENCOUNTER 2023-05-15 13:25 | Emergency (ER) | payer MEDICAID, OTHER ==
[~2023-05-15] VITALS: Ht 149.9 cm; Wt 102.0 kg
[2023-05-15 13:26] VITALS: BP 151/82; TEMP 98.6; O2SAT 100
[2023-05-15] MEDS ORDERED: CLON0.2T (13:43)
[2023-05-15] MEDS ORDERED: GABA600T4 (13:43)
[2023-05-15] MEDS ORDERED: ARIP1TAB10 (13:43)
== END 2023-05-15 19:09 | disposition left against medical advice (07) ==
LOC: M ED 13:25
DX: Z53.21 Procedure and treatment not carried out due to patient leaving prior to being seen by health care provider (principal)

== ENCOUNTER → 2023-06-04 | Outpatient (CLI) | payer OTHER ==
[~2023-06-04] MED LIST changes: +ARIP1TAB10; +CLON0.2T; +GABA600T4
== END ==
LOC: M PLAIMG 13:42
PROVIDERS: ATTEND Student in an Organized Health Care Education/Training Program
DX: M25.561 Pain in right knee (principal)

== ENCOUNTER 2023-07-07 14:46 | Outpatient (RCR) | payer OTHER | END 2023-08-02 | LOC: M PT 14:46 | PROVIDERS: ATTEND Student in an Organized Health Care Education/Training Program | DX: M25.561 Pain in right knee (principal) ==

== ENCOUNTER 2024-02-18 07:32 | Emergency (ER) | payer MEDICAID, OTHER ==
[~2024-02-18] VITALS: Ht 149.9 cm; Wt 102.4 kg
[~2024-02-18 07:32] MED LIST changes: +LABE100T40 PO; -LABE100T71 PO
[2024-02-18] MEDS ORDERED: VALA1TAB5 (07:42)
[2024-02-18] MEDS ORDERED: SERT25TA21 (07:42)
[2024-02-18] MEDS ORDERED: ARIP1TAB43 (07:42)
[2024-02-18] MEDS ORDERED: TEGR1TAB PO (07:42)
[2024-02-18] MEDS ORDERED: PRED20TA PO (09:38)
[2024-02-18] MEDS: predniSONE 20 MG TAB PO ONE (09:41)
[2024-02-18 09:45] VITALS: BP 160/70; TEMP 97.7; O2SAT 98
== END 2024-02-18 09:50 | disposition home or self-care (01) ==
LOC: M ED 07:32
DX: K12.2 Cellulitis and abscess of mouth (principal); F90.9 Attention-deficit hyperactivity disorder, unspecified type; Z91.010 Allergy to peanuts; Z91.018 Allergy to other foods; Z79.52 Long term (current) use of systemic steroids; Z79.899 Other long term (current) drug therapy
CPT/HCPCS: 99283; J7512

== ENCOUNTER → 2024-06-22 | Outpatient (CLI) | payer OTHER ==
[~2024-06-22] MED LIST changes: +ARIP20TA51; +GABA-1172; +GABA-1490; -GABA-282; -GABA600T4; +PRED20TA PO; +SERT25TA21; +TEGR1TAB PO; +VALA1TAB5
[2024-06-22 15:21] LABS: BASO # 0.1 10^3/uL (0.0-0.2); BASO % 0.8 % (0.0-1.0); EOS # 0.1 10^3/uL (0.0-0.5); EOS % 2.2 % (0.0-3.0); HEMATOCRIT 39.7 % (36.0-47.0); LYMPH # 1.6 10^3/uL (1.5-5.0); MEAN CORPUSCULAR HEMOGLOBIN 29.7 pg (27.0-33.0); MEAN CORPUSCULAR HGB CONC 32.7 g/dl (32.0-36.5); MEAN CORPUSCULAR VOLUME 90.8 fl (80.0-96.0); MONO # 0.4 10^3/uL (0.0-0.8); MONO % 6.4 % (2.0-8.0); NEUTROPHILS # 3.8 10^3/uL (1.5-8.5); NEUTROPHILS % 64.4 % (36.0-66.0); PLATELET COUNT, AUTOMATED 113 10^3/uL (150-450); RED BLOOD COUNT 4.37 10^6/uL (4.00-5.40)
[2024-06-22 15:28] LABS: ALBUMIN 3.2 G/DL (3.2-5.2); ALKALINE PHOSPHATASE 126 U/L (35-104); ALT/SGPT 53 U/L (7.0-40); AST/SGOT 164 U/L (<34); BILIRUBIN,TOTAL 0.9 MG/DL (0.3-1.2); BLOOD UREA NITROGEN 9 MG/DL (9-23); CALCIUM LEVEL 9.9 MG/DL (8.5-10.1); CARBON DIOXIDE LEVEL 27 MMOL/L (20-31); CHLORIDE LEVEL 97 MMOL/L (98-107); CREATININE FOR GFR 0.45 MG/DL (0.55-1.30); GLOMERULAR FILTRATION RATE > 60.0 (>58); GLUCOSE, FASTING 288 MG/DL (60-100); POTASSIUM SERUM 3.6 MMOL/L (3.5-5.1); SODIUM LEVEL 131 MMOL/L (136-145); TOTAL PROTEIN 9.2 G/DL (5.7-8.2)
[2024-06-22 15:31] LABS: THYROID STIMULATING HORMONE 6.285 uIU/ML (0.55-4.78)
[2024-06-22 15:35] LABS: INR 1.2; PROTHROMBIN TIME 15.5 SECONDS (12.5-14.5)
[2024-06-22 16:10] LABS: HEPATITIS B SURFACE ANTIBODY NEGATIVE (POSITIVE)
[2024-06-22 16:16] LABS: HEMOGLOBIN A1c 10.8 % (4.0-6.0)
[2024-06-22 16:31] LABS: HEPATITIS B SURFACE ANTIGEN NEGATIVE (NEGATIVE)
[2024-06-22 16:34] LABS: HIV 1&2 SCREEN NEGATIVE (NEGATIVE)
[2024-06-22 17:24] LABS: GC DNA AMPLIFICATION NEGATIVE (NEGATIVE)
[2024-06-22 17:26] LABS: GC DNA AMPLIFICATION NEGATIVE (NEGATIVE)
[2024-06-22 17:27] LABS: GC DNA AMPLIFICATION NEGATIVE (NEGATIVE)
[2024-06-22 17:45] LABS: HEPATITIS C VIRUS ABY INDEX 0.04 INDEX (<0.8)
== END ==
LOC: M PLALAB 11:53
PROVIDERS: ATTEND Student in an Organized Health Care Education/Training Program
DX: Z00.00 Encounter for general adult medical examination without abnormal findings (principal); Z12.4 Encounter for screening for malignant neoplasm of cervix; Z78.9 Other specified health status; Z13.1 Encounter for screening for diabetes mellitus; R87.613 High grade squamous intraepithelial lesion on cytologic smear of cervix (HGSIL)

== ENCOUNTER → 2024-06-29 | Outpatient (CLI) | payer OTHER ==
[2024-06-29 11:24] LABS: FREE T4 0.93 NG/DL (0.89-1.76); THYROID STIMULATING HORMONE 5.375 uIU/ML (0.55-4.78)
== END ==
LOC: M PLALAB 08:04
PROVIDERS: ATTEND Student in an Organized Health Care Education/Training Program
DX: E07.9 Disorder of thyroid, unspecified (principal)

== ENCOUNTER → 2024-07-25 | Outpatient (REF) | payer OTHER | LOC: M PLALAB 13:38 | PROVIDERS: ATTEND Specialist | DX: R87.613 High grade squamous intraepithelial lesion on cytologic smear of cervix (HGSIL) (principal) ==

== ENCOUNTER 2024-09-08 08:12 | Inpatient (IN) | payer OTHER ==
[~2024-09-08] VITALS: Ht 149.9 cm; Wt 90.5 kg
[~2024-09-08 08:12] MED LIST changes: -ARIP20TA51; +ARIP20TA51 PO; -CLON0.2T; -GABA-1490; +GABA-1490 PO; -SERT25TA21; +SERT25TA21 PO
[2024-09-08 11:37] LABS: BASO % 0.7 % (0.0-1.0); EOS # 0.1 10^3/uL (0.0-0.5); HEMATOCRIT 36.6 % (36.0-47.0); HEMOGLOBIN 11.6 g/dl (12.0-15.5); LYMPH # 1.2 10^3/uL (1.5-5.0); LYMPH % 20.2 % (24.0-44.0); MEAN CORPUSCULAR HEMOGLOBIN 28.4 pg (27.0-33.0); MEAN CORPUSCULAR HGB CONC 31.7 g/dl (32.0-36.5); MEAN CORPUSCULAR VOLUME 89.7 fl (80.0-96.0); MONO # 0.6 10^3/uL (0.0-0.8); MONO % 9.4 % (2.0-8.0); NEUTROPHILS # 4.1 10^3/uL (1.5-8.5); NEUTROPHILS % 67.4 % (36.0-66.0); RED BLOOD COUNT 4.08 10^6/uL (4.00-5.40); WHITE BLOOD COUNT 6.1 10^3/uL (4.0-10.0)
[2024-09-08 11:55] LABS: PLATELET COUNT, AUTOMATED 96 10^3/uL (150-450)
[2024-09-08 11:57] LABS: ALBUMIN 3.4 G/DL (3.2-5.2); BILIRUBIN,DIRECT 0.5 MG/DL (<0.4); INR 1.2; PARTIAL THROMBOPLASTIN TIME 36.3 SECONDS (24.8-34.2); PROTHROMBIN TIME 15.5 SECONDS (12.5-14.5); TOTAL PROTEIN 9.9 G/DL (5.7-8.2)
[2024-09-08 12:25] LABS: KETONE, URINE AUTO RFX NEGATIVE (NEGATIVE); LEUKOCYTE ESTERASE UR AUTO RFX NEGATIVE (NEGATIVE); MUCUS, URINE RFX SMALL (NEGATIVE); NITRITE, URINE AUTO RFX NEGATIVE (NEGATIVE); RBC, URINE AUTO RFX 5 /HPF (0-3); SQUAM EPITHELIAL CELL UR AURFX 9 /HPF (0-6); WBC, URINE AUTO RFX 2 /HPF (0-3)
[2024-09-08] MEDS ORDERED: ISOVUE-370 76% 100ML VIAL As Ordered ONE (12:32)
[2024-09-08] MEDS: LORazepam 2 MG TAB PO PRN ×2 (12:56→17:04)
[2024-09-08] MEDS: FOLIC ACID 1MG TAB PO SCH (13:29)
[2024-09-08] MEDS: MULTIVITAMINS/MINERALS THERAP 1 TAB PO SCH (13:29)
[2024-09-08] MEDS: THIAMINE 100 MG TAB PO SCH ×2 (13:30→20:21)
[2024-09-08] MEDS: ONDANSETRON 4MG 2ML VIAL IV ONE (13:32)
[2024-09-08 13:33] LABS: ETHYL ALCOHOL (ETHANOL) 0.044 % (0.000-0.010)
[2024-09-08] MEDS ORDERED: SERT50TA29 PO (15:50)
[2024-09-08] MEDS ORDERED: CARB400T11 PO (15:50)
[2024-09-08] MEDS ORDERED: LANTINJ4 INJ (15:51)
[2024-09-08] MEDS ORDERED: HOME MED LIST COMPLETE! XX SCH (15:55)
[2024-09-08] MEDS: cefTRIAXone SOD 1 GM in DEXTROSE 5% (D5W) ADV/MINI-BAG 50 ML IV ONE (16:28)
[2024-09-08] MEDS ORDERED: MOM 30ML SUSPENSION UDC PO PRN (16:40)
[2024-09-08] MEDS ORDERED: MAALOX 30 ML SUSP *UDC PO PRN (16:40)
[2024-09-08] MEDS ORDERED: ALBUTEROL 90 MCG/ACT 8GM HFA INHALER INH PRN (16:50)
[2024-09-08] MEDS: ACETAMINOPHEN 325 MG TAB PO PRN (17:07)
[2024-09-08 17:16] LABS: PROCALCITONIN 0.05 ng/ml
[2024-09-08 17:37] LABS: C REACTIVE PROTEIN QUANTITATIV 1.54 MG/DL (<1.0)
[2024-09-08] MEDS: NS (Normal Saline) 0.9% 1,000 ML IV SCH (18:25)
[2024-09-08] MEDS: AZITHROMYCIN 250MG TABLET PO SCH (18:26)
[2024-09-08] MEDS: ONDANSETRON 4MG 2ML VIAL IV PRN (20:21)
[2024-09-08] MEDS: OXAZEPAM 15MG CAP PO SCH (20:21)
[2024-09-08 20:22] VITALS: BP 150/85; TEMP 98.1; O2SAT 96
[2024-09-08] MEDS ORDERED: THIAMINE 100 MG TAB PO SCH (21:00)
[2024-09-08 22:58] VITALS: BP 138/78; TEMP 98.5; O2SAT 96
[2024-09-08 23:00] VITALS: BP 138/78
[2024-09-09] VITALS (24 sets, daily range): BP systolic 130–169; BP diastolic 75–98; TEMP 97.8–98.9; O2SAT 94–98
[2024-09-09 07:40] LABS: LIPASE 146 U/L (12-53)
[2024-09-09 07:43] LABS: ALBUMIN 2.8 G/DL (3.2-5.2); ALKALINE PHOSPHATASE 96 U/L (35-104); ALT/SGPT 43 U/L (7.0-40); AST/SGOT 120 U/L (<34); BILIRUBIN,TOTAL 1.6 MG/DL (0.3-1.2); BLOOD UREA NITROGEN 7 MG/DL (9-23); CALCIUM LEVEL 8.5 MG/DL (8.5-10.1); CARBON DIOXIDE LEVEL 26 MMOL/L (20-31); CHLORIDE LEVEL 101 MMOL/L (98-107); CREATININE FOR GFR 0.52 MG/DL (0.55-1.30); GLOMERULAR FILTRATION RATE > 60.0 (>58); GLUCOSE, FASTING 137 MG/DL (60-100); MAGNESIUM LEVEL 1.1 MG/DL (1.8-2.4); POTASSIUM SERUM 3.3 MMOL/L (3.5-5.1); SODIUM LEVEL 136 MMOL/L (136-145); TOTAL PROTEIN 8.3 G/DL (5.7-8.2)
[2024-09-09] MEDS ORDERED: FOLIC ACID 1MG TAB PO SCH (09:00)
[2024-09-09] MEDS ORDERED: MULTIVITAMINS/MINERALS THERAP 1 TAB PO SCH (09:00)
[2024-09-09] MEDS: POTASSIUM CHLORIDE 10MEQ SR TABLET PO SCH (10:03)
[2024-09-09] MEDS: FOLIC ACID 1MG TAB PO SCH (10:03)
[2024-09-09] MEDS: MULTIVITAMINS/MINERALS THERAP 1 TAB PO SCH (10:03)
[2024-09-09] MEDS: cefTRIAXone SOD 2 GM in DEXTROSE 5% (D5W) ADV/MINI-BAG 50 ML IV SCH (10:04)
[2024-09-09] MEDS: MAGNESIUM OXIDE 400MG TAB (MAG-OX) PO SCH (10:04)
[2024-09-09] MEDS: MAG SULF 1GM/100ML (MAG RUN) 1 GM in IV 1 EA IV SCH (10:05)
[2024-09-09] MEDS: BENZONATATE 100MG CAPSULE PO SCH (10:39)
[2024-09-09] MEDS: CHLORASEPTIC SPRAY MT PRN (13:22)
[2024-09-09] MEDS: METOPROLOL TART 25 MG TABLET PO ONE (22:02)
[2024-09-10] VITALS (31 sets, daily range): BP systolic 112–149; BP diastolic 57–89; TEMP 97.2–98.8; O2SAT 90–98
[2024-09-10 06:43] LABS: ALBUMIN 2.8 G/DL (3.2-5.2); ALKALINE PHOSPHATASE 102 U/L (35-104); ALT/SGPT 39 U/L (7.0-40); AST/SGOT 120 U/L (<34); BILIRUBIN,TOTAL 0.9 MG/DL (0.3-1.2); BLOOD UREA NITROGEN 6 MG/DL (9-23); CALCIUM LEVEL 8.2 MG/DL (8.5-10.1); CARBON DIOXIDE LEVEL 24 MMOL/L (20-31); CHLORIDE LEVEL 104 MMOL/L (98-107); CREATININE FOR GFR 0.52 MG/DL (0.55-1.30); GLOMERULAR FILTRATION RATE > 60.0 (>58); GLUCOSE, FASTING 125 MG/DL (60-100); MAGNESIUM LEVEL 2.2 MG/DL (1.8-2.4); POTASSIUM SERUM 4.2 MMOL/L (3.5-5.1); SODIUM LEVEL 136 MMOL/L (136-145); TOTAL PROTEIN 8.5 G/DL (5.7-8.2)
[2024-09-10 07:20] LABS: BASO # 0.1 10^3/uL (0.0-0.2); BASO % 0.9 % (0.0-1.0); EOS # 0.1 10^3/uL (0.0-0.5); EOS % 2.4 % (0.0-3.0); HEMATOCRIT 35.1 % (36.0-47.0); HEMOGLOBIN 11.1 g/dl (12.0-15.5); LYMPH # 1.4 10^3/uL (1.5-5.0); LYMPH % 23.6 % (24.0-44.0); MEAN CORPUSCULAR HEMOGLOBIN 28.9 pg (27.0-33.0); MEAN CORPUSCULAR HGB CONC 31.6 g/dl (32.0-36.5); MEAN CORPUSCULAR VOLUME 91.4 fl (80.0-96.0); MONO # 0.5 10^3/uL (0.0-0.8); MONO % 9.2 % (2.0-8.0); NEUTROPHILS # 3.7 10^3/uL (1.5-8.5); NEUTROPHILS % 63.7 % (36.0-66.0); RED BLOOD COUNT 3.84 10^6/uL (4.00-5.40); WHITE BLOOD COUNT 5.8 10^3/uL (4.0-10.0)
[2024-09-10 07:27] LABS: PLATELET COUNT, AUTOMATED 77 10^3/uL (150-450)
[2024-09-10 10:52] LABS: TRIGLYCERIDES LEVEL 121 MG/DL (<150)
[2024-09-10] MEDS ORDERED: GLUCOSE 4 GM CHEW PO PRN (13:25)
[2024-09-10] MEDS ORDERED: DEXTROSE 50% 50ML SYRINGE IV PRN (13:25)
[2024-09-10] MEDS ORDERED: GLUCAGON INJ 1MG VIAL SC PRN (13:25)
[2024-09-10] MEDS: INSULIN LISPRO (NovoLOG) PER UNIT SC SCH ×2 (14:01→21:00)
[2024-09-10 14:11] LABS: HEMOGLOBIN A1c 7.4 % (4.0-6.0)
[2024-09-10] MEDS: OXAZEPAM 15MG CAP PO SCH (17:32)
[2024-09-10] MEDS: PROPRANOLOL 10 MG TAB PO SCH (17:33)
[2024-09-10] MEDS: GABAPENTIN 300 MG CAP PO SCH (20:30)
[2024-09-10] MEDS: LEVEMIR (INSULIN DETEMIR) 1 UNITS/0.01ML SQ SCH (20:30)
[2024-09-10] MEDS: ARIPiprazole 10 MG TAB PO SCH (20:31)
[2024-09-10] MEDS: carBAMazepine XR 200 MG TAB PO SCH (20:31)
[2024-09-10] MEDS: SERTRALINE HCL 25 MG TABLET PO SCH (20:31)
[2024-09-10] MEDS: CEFDINIR 300 MG CAP (OMNICEF) PO SCH (20:32)
[2024-09-10] MEDS ORDERED: SERTRALINE HCL 50 MG TAB PO SCH (21:00)
[2024-09-11] VITALS (10 sets, daily range): BP systolic 116–142; BP diastolic 75–89; TEMP 97.4–97.9; O2SAT 94–97
[2024-09-11 06:27] LABS: BASO # 0.1 10^3/uL (0.0-0.2); BASO % 0.7 % (0.0-1.0); EOS # 0.2 10^3/uL (0.0-0.5); EOS % 2.8 % (0.0-3.0); HEMATOCRIT 37.3 % (36.0-47.0); HEMOGLOBIN 11.7 g/dl (12.0-15.5); LYMPH # 1.8 10^3/uL (1.5-5.0); LYMPH % 21.3 % (24.0-44.0); MEAN CORPUSCULAR HEMOGLOBIN 28.7 pg (27.0-33.0); MEAN CORPUSCULAR HGB CONC 31.4 g/dl (32.0-36.5); MEAN CORPUSCULAR VOLUME 91.4 fl (80.0-96.0); MONO # 0.7 10^3/uL (0.0-0.8); MONO % 8.7 % (2.0-8.0); NEUTROPHILS # 5.7 10^3/uL (1.5-8.5); NEUTROPHILS % 66.3 % (36.0-66.0); PLATELET COUNT, AUTOMATED 107 10^3/uL (150-450); RED BLOOD COUNT 4.08 10^6/uL (4.00-5.40); WHITE BLOOD COUNT 8.5 10^3/uL (4.0-10.0)
[2024-09-11 07:01] LABS: BLOOD UREA NITROGEN 10 MG/DL (9-23); CARBON DIOXIDE LEVEL 20 MMOL/L (20-31); CHLORIDE LEVEL 103 MMOL/L (98-107); CREATININE FOR GFR 0.53 MG/DL (0.55-1.30); GLOMERULAR FILTRATION RATE > 60.0 (>58); GLUCOSE, FASTING 120 MG/DL (60-100); MAGNESIUM LEVEL 1.8 MG/DL (1.8-2.4); POTASSIUM SERUM 4.5 MMOL/L (3.5-5.1); SODIUM LEVEL 134 MMOL/L (136-145)
[2024-09-11] MEDS ORDERED: LANTINJ4 INJ (08:12)
[2024-09-11] MEDS ORDERED: PROP10TA56 PO (08:12)
[2024-09-11] MEDS ORDERED: THIA100TA PO (08:12)
[2024-09-11] MEDS ORDERED: PANT40TA29 PO (08:12)
[2024-09-11] MEDS ORDERED: AZIT-12 PO (08:12)
[2024-09-11] MEDS ORDERED: CEFD300CAP PO (08:12)
[2024-09-11] MEDS: MAG SULF 1GM/100ML (MAG RUN) 1 GM in IV 1 EA IV ONE (08:33)
[2024-09-11] MEDS: PANTOPRAZOLE 40MG TAB (PROTONIX) PO SCH (08:33)
[2024-09-12 19:08] LABS: URINE STREP PNEUMONIAE ANTIGEN NOT DETECTED (NOT DETECT)
== END 2024-09-11 10:05 | disposition home or self-care (01) | DRG 282 ==
LOC: M ED 08:12 → M ED INP 16:39 → M PCU 20:06
PROVIDERS: ADMIT Student in an Organized Health Care Education/Training Program; ATTEND Internal Medicine
DX: K85.20 Alcohol induced acute pancreatitis without necrosis or infection (principal); J18.9 Pneumonia, unspecified organism; K76.6 Portal hypertension; D69.6 Thrombocytopenia, unspecified; K70.0 Alcoholic fatty liver; E83.42 Hypomagnesemia; K70.30 Alcoholic cirrhosis of liver without ascites; F10.20 Alcohol dependence, uncomplicated; K21.9 Gastro-esophageal reflux disease without esophagitis; E87.6 Hypokalemia; E11.9 Type 2 diabetes mellitus without complications; F41.9 Anxiety disorder, unspecified; F32.9 Major depressive disorder, single episode, unspecified; E66.9 Obesity, unspecified; M19.90 Unspecified osteoarthritis, unspecified site; G47.33 Obstructive sleep apnea (adult) (pediatric); Z79.899 Other long term (current) drug therapy; Z91.018 Allergy to other foods; Z91.010 Allergy to peanuts

== ENCOUNTER → 2024-10-06 | Outpatient (CLI) | payer OTHER ==
[~2024-10-06] MED LIST changes: +AZIT-12 PO; +CARB400T11 PO; +CEFD300CAP PO; +LANTINJ4 INJ; +PANT40TA29 PO; +PROP10TA56 PO; +THIA100TA PO
[2024-10-06 12:56] LABS: INR 1.34; PROTHROMBIN TIME 16.9 SECONDS (12.5-14.5)
[2024-10-06 15:20] LABS: ALBUMIN 3.2 G/DL (3.2-5.2); ALKALINE PHOSPHATASE 94 U/L (35-104); ALT/SGPT 43 U/L (7.0-40); AST/SGOT 79 U/L (<34); BASO # 0.1 10^3/uL (0.0-0.2); BASO % 0.7 % (0.0-1.0); BILIRUBIN,TOTAL 1.1 MG/DL (0.3-1.2); BLOOD UREA NITROGEN 10 MG/DL (9-23); CALCIUM LEVEL 9.2 MG/DL (8.5-10.1); CARBON DIOXIDE LEVEL 24 MMOL/L (20-31); CHLORIDE LEVEL 102 MMOL/L (98-107); CREATININE FOR GFR 0.64 MG/DL (0.55-1.30); EOS # 0.4 10^3/uL (0.0-0.5); EOS % 4.3 % (0.0-3.0); FREE T4 0.95 NG/DL (0.89-1.76); GLOMERULAR FILTRATION RATE > 60.0 (>58); GLUCOSE, FASTING 100 MG/DL (60-100); HEMATOCRIT 40.2 % (36.0-47.0); HEMOGLOBIN 12.6 g/dl (12.0-15.5); LYMPH # 2.6 10^3/uL (1.5-5.0); LYMPH % 30.6 % (24.0-44.0); MEAN CORPUSCULAR HEMOGLOBIN 28.1 pg (27.0-33.0); MEAN CORPUSCULAR HGB CONC 31.3 g/dl (32.0-36.5); MEAN CORPUSCULAR VOLUME 89.5 fl (80.0-96.0); MONO # 0.6 10^3/uL (0.0-0.8); MONO % 6.7 % (2.0-8.0); NEUTROPHILS # 4.9 10^3/uL (1.5-8.5); NEUTROPHILS % 57.6 % (36.0-66.0); PLATELET COUNT, AUTOMATED 119 10^3/uL (150-450); POTASSIUM SERUM 4.1 MMOL/L (3.5-5.1); RED BLOOD COUNT 4.49 10^6/uL (4.00-5.40); SODIUM LEVEL 139 MMOL/L (136-145); THYROID STIMULATING HORMONE 4.547 uIU/ML (0.55-4.78); WHITE BLOOD COUNT 8.4 10^3/uL (4.0-10.0)
[2024-10-06 15:34] LABS: CREATININE, URINE 82.1 MG/DL; MAU/CREAT RATIO 3.6 MCG/MG (0.0-30.0)
[2024-10-06 15:56] LABS: HEMOGLOBIN A1c 6.5 % (4.0-6.0)
== END ==
LOC: M PLALAB 10:19
PROVIDERS: ATTEND Student in an Organized Health Care Education/Training Program
DX: E11.9 Type 2 diabetes mellitus without complications (principal); K70.30 Alcoholic cirrhosis of liver without ascites; E03.8 Other specified hypothyroidism

== ENCOUNTER 2024-10-28 07:30 | Day surgery (SDC) | payer OTHER ==
[~2024-10-28] VITALS: Ht 149.9 cm; Wt 92.5 kg
[2024-10-28] MEDS ORDERED: fentaNYL 100 MCG/2 ML INJECTION As Ordered ONE (07:58)
[2024-10-28] MEDS ORDERED: KETOROLAC 30 MG/ML 1ML VIAL As Ordered ONE (07:58)
[2024-10-28] MEDS ORDERED: MIDAZOLAM INJ 2MG/2ML VIAL As Ordered ONE (07:58)
[2024-10-28] MEDS ORDERED: ONDANSETRON 4MG 2ML VIAL As Ordered ONE (07:58)
[2024-10-28] MEDS ORDERED: ACETAMINOPHEN 1000MG/100ML IV BAG As Ordered ONE (07:59)
[2024-10-28] MEDS ORDERED: LIDOCAINE 2% 100MG/5ML SDV (FOR ANES.) As Ordered ONE (07:59)
[2024-10-28] MEDS ORDERED: propofoL 200 MG/20 ML VIAL As Ordered ONE (07:59)
[2024-10-28 08:20] LABS: HEMATOCRIT 39.3 % (36.0-47.0); HEMOGLOBIN 12.6 g/dl (12.0-15.5); MEAN CORPUSCULAR HEMOGLOBIN 27.6 pg (27.0-33.0); MEAN CORPUSCULAR HGB CONC 32.1 g/dl (32.0-36.5); PLATELET COUNT, AUTOMATED 108 10^3/uL (150-450); RED BLOOD COUNT 4.57 10^6/uL (4.00-5.40); WHITE BLOOD COUNT 6.7 10^3/uL (4.0-10.0)
[2024-10-28] MEDS ORDERED: IODINE STRONG SOLN 15ML BTL As Ordered ONE (09:09)
[2024-10-28] MEDS ORDERED: LIDOCAINE W/EPINEPHRINE 1% 20ML VIAL As Ordered ONE (09:10)
[2024-10-28] MEDS: ceFAZolin SOD 2 GM IV ONCE IV ONE (09:34)
[2024-10-28] MEDS ORDERED: ONDANSETRON 4MG 2ML VIAL IV PRN (10:35)
[2024-10-28] MEDS ORDERED: LR 1,000 ML IV SCH (10:35)
[2024-10-28] MEDS ORDERED: fentaNYL 100 MCG/2 ML INJECTION IV PRN (10:35)
[2024-10-28] MEDS: oxyCODONE 5MG TAB PO PRN (11:04)
[2024-10-28] MEDS: HYDROMORPHONE HCL 0.5 MG/ 0.5 ML SYRINGE IV PRN (11:19)
[2024-10-28 12:01] VITALS: BP 122/76; TEMP 96; O2SAT 95
[2024-10-28] MEDS ORDERED: IBUP-1022 PO (12:14)
[2024-10-28] MEDS ORDERED: OXYC1TAB23 PO (12:18)
== END 2024-10-28 12:31 | disposition home or self-care (01) ==
LOC: M SDC 07:30
PROVIDERS: ATTEND Specialist
DX: N39.3 Stress incontinence (female) (male) (principal); N87.9 Dysplasia of cervix uteri, unspecified; E11.9 Type 2 diabetes mellitus without complications; E28.2 Polycystic ovarian syndrome; K76.0 Fatty (change of) liver, not elsewhere classified; F31.9 Bipolar disorder, unspecified; Z87.891 Personal history of nicotine dependence; K21.9 Gastro-esophageal reflux disease without esophagitis; A60.00 Herpesviral infection of urogenital system, unspecified; Z79.4 Long term (current) use of insulin; Z79.899 Other long term (current) drug therapy; Z91.010 Allergy to peanuts; Z91.018 Allergy to other foods
CPT/HCPCS: 36415; 57288; 57522; 85027; 86850; 86900; 86901; 88307; C1771; J0131; J0690; J1100; J1171; J1885; J2250; J2405; J3010

== ENCOUNTER → 2024-11-10 | Outpatient (CLI) | payer MEDICAID ==
[~2024-11-10] MED LIST changes: +IBUP-1022 PO
== END ==
LOC: M OUTALCOH 08:21
PROVIDERS: ATTEND Psychiatry & Neurology Psychiatry
DX: F10.20 Alcohol dependence, uncomplicated (principal)

== ENCOUNTER → 2024-11-30 | Outpatient (RCR) | payer MEDICAID | LOC: M OUTALCOH 11-11 08:06 | PROVIDERS: ATTEND Psychiatry & Neurology Psychiatry | DX: F10.20 Alcohol dependence, uncomplicated (principal) ==

== ENCOUNTER 2025-03-01 08:40 | Outpatient (RCR) | payer OTHER ==
[~2025-03-01 08:40] MED LIST changes: +NALT50TA4 PO; +VIVI380I IM
== END 2025-03-02 ==
LOC: M OUTALCOH 08:40
PROVIDERS: ATTEND Psychiatry & Neurology Psychiatry
DX: F10.20 Alcohol dependence, uncomplicated (principal); F12.20 Cannabis dependence, uncomplicated

== ENCOUNTER → 2025-03-07 | Outpatient (REF) | payer MEDICAID ==
[2025-03-07 12:49] LABS: APPEARANCE, URINE HAZY (CLEAR); BACTERIA, URINE AUTO NEGATIVE (NEGATIVE); BILIRUBIN, URINE AUTO NEGATIVE (NEGATIVE); BLOOD, URINE BLOOD NEGATIVE (NEGATIVE); GLUCOSE, URINE (UA) AUTO NEGATIVE (NEGATIVE); KETONE, URINE AUTO NEGATIVE (NEGATIVE); LEUKOCYTE ESTERASE, URINE AUTO NEGATIVE (NEGATIVE); NITRITE, URINE AUTO NEGATIVE (NEGATIVE); PROTEIN, URINE AUTO NEGATIVE (NEGATIVE); RBC, URINE AUTO 1 /HPF (0-3); SPECIFIC GRAVITY URINE AUTO 1.016 (1.002-1.035); SQUAMOUS EPITHELIAL CELL UR AU 4 /HPF (0-6); UROBILINOGEN, URINE AUTO 0.2 mg/dL (0.0-2.0); WBC, URINE AUTO 2 /HPF (0-3)
[2025-03-07 13:52] LABS: Trichomonas vaginalis (AMP) NOT DETECTED (NEGATIVE)
[2025-03-07 14:15] LABS: GC DNA AMPLIFICATION NEGATIVE (NEGATIVE)
== END ==
LOC: M LAB REF 12:07
PROVIDERS: ATTEND Physician Assistant Medical
DX: N39.0 Urinary tract infection, site not specified (principal); Z20.2 Contact with and (suspected) exposure to infections with a predominantly sexual mode of transmission

== ENCOUNTER 2025-03-29 08:40 | Outpatient (RCR) | payer MEDICAID ==
[~2025-03-29 08:40] MED LIST changes: -IBUP-1022 PO; +IBUP600T42 PO
== END 2025-04-02 ==
LOC: M OUTALCOH 08:40
PROVIDERS: ATTEND Psychiatry & Neurology Psychiatry
DX: F10.20 Alcohol dependence, uncomplicated (principal); F12.20 Cannabis dependence, uncomplicated

== ENCOUNTER 2025-04-27 09:00 | Outpatient (RCR) | payer MEDICAID, OTHER | END 2025-05-02 | LOC: M OUTALCOH 09:00 | PROVIDERS: ATTEND Psychiatry & Neurology Psychiatry | DX: F10.20 Alcohol dependence, uncomplicated (principal) ==

== ENCOUNTER 2025-05-31 16:00 | Outpatient (RCR) | payer MEDICAID | END 2025-06-02 | LOC: M OUTALCOH 16:00 | PROVIDERS: ATTEND Psychiatry & Neurology Psychiatry | DX: F10.20 Alcohol dependence, uncomplicated (principal) ==

== ENCOUNTER 2025-06-28 16:00 | Outpatient (RCR) | payer MEDICAID | END 2025-07-02 | LOC: M OUTALCOH 16:00 | PROVIDERS: ATTEND Psychiatry & Neurology Psychiatry | DX: F10.20 Alcohol dependence, uncomplicated (principal) ==

== ENCOUNTER → 2025-07-04 | Outpatient (REF) | payer MEDICAID ==
[2025-07-04 13:52] LABS: Trichomonas vaginalis (AMP) NOT DETECTED (NEGATIVE)
[2025-07-04 14:16] LABS: GC DNA AMPLIFICATION NEGATIVE (NEGATIVE)
[2025-07-04 15:15] LABS: ALT/SGPT 77 U/L (7.0-40); AST/SGOT 166 U/L (<34); CALCIUM LEVEL 9.2 MG/DL (8.5-10.1); CARBON DIOXIDE LEVEL 28 MMOL/L (20-31); CHLORIDE LEVEL 106 MMOL/L (98-107); CHOLESTEROL LEVEL 182 MG/DL (<200); CHOLESTEROL RISK RATIO 2.94 (<5); CREATININE FOR GFR 0.52 MG/DL (0.55-1.30); GLOMERULAR FILTRATION RATE > 90.0 (>58); LDL CHOLESTEROL 101.2 MG/DL (<100); NON-HDL-C 120.2 MG/DL; POTASSIUM SERUM 4.2 MMOL/L (3.5-5.1); SODIUM LEVEL 145 MMOL/L (136-145); TRIGLYCERIDES LEVEL 95 MG/DL (<150)
[2025-07-04 15:22] LABS: URINE PREG TEST NEGATIVE (NEGATIVE)
[2025-07-04 15:39] LABS: ESTIMATED AVERAGE GLUCOSE 111.0 MG/DL (60-110)
[2025-07-04 15:42] LABS: HIV 1&2 SCREEN NEGATIVE (NEGATIVE)
[2025-07-04 15:50] LABS: HEPATITIS C VIRUS ABY INDEX < 0.02 INDEX (<0.8)
== END ==
LOC: M LAB REF 12:10
PROVIDERS: ATTEND Student in an Organized Health Care Education/Training Program
DX: A64 Unspecified sexually transmitted disease (principal); Z68.41 Body mass index [BMI] 40.0-44.9, adult

== ENCOUNTER 2025-07-31 13:55 | Outpatient (RCR) | payer MEDICAID | END 2025-08-02 | LOC: M OUTALCOH 13:55 | PROVIDERS: ATTEND Psychiatry & Neurology Psychiatry | DX: F10.20 Alcohol dependence, uncomplicated (principal) ==